=== PATIENT | female | born 1940 | race Caucasian/White ===

== ENCOUNTER → 2016-11-16 | Outpatient (CLI) | payer BC ==
[2015-08-21 11:45] VITALS: BP 120/63
[~2016-11-16] MED LIST: CALC200T19 PO; CHOL100013 PO; GABA-585 PO; GLUC1TAB PO; HYDR12.58 PO; IBUP100O7 PO; MULT-245 PO; OMEG500C PO; OTHER; PANT40TA5 PO; RANI300T PO; SIMV5TAB5 PO
--- NOTE | 2016-11-16 14:33 | KCIC ---
PROCEDURE BMD using DEXA HISTORY Postmenopausal screening for osteoporosis. COMPARISON None available. FINDINGS Bone Density: -BMD: (g/cm2) - AP Spine Total (L1-L4)..........1.145 - Total left Hip.................0.853 T-Score: - AP Spine Total (L1-L4).........0.9 - Total left Hip.................-0.7 Z-Score: - AP Spine Total (L1-L4)..........3.3 - Total left Hip.................1.1 World Health Organization criteria for BMD interpretation classify patients as Normal (T-score at or above -1.0), Osteopenic (T-score between -1.0 and -2.5), or Osteoporotic (T-score at or below -2.5). IMPRESSION 1. AP Spine Total L1-L4---normal. 2. Total left Hip---normal. Electronically signed by: Fei Mejia MD (Nov 16, 2016 14:31:34)
== END | disposition home or self-care (01) ==
LOC: KCIC DEXA 09:45
PROVIDERS: ATTEND Physician Assistant Medical
DX: Z13.820 Encounter for screening for osteoporosis (principal); Z78.0 Asymptomatic menopausal state
CPT/HCPCS: 77080

== ENCOUNTER 2018-05-14 11:01 | Inpatient (IN) | payer BC ==
[~2018-05-14] VITALS: Ht 149.9 cm; Wt 73.7 kg
[~2018-05-14 11:01] MED LIST changes: +IBUP100O25 PO; -IBUP100O7 PO
[2018-05-14 12:36] VITALS: BP 133/60
[2018-05-14] MEDS ORDERED: GABA600T2 PO (12:53)
[2018-05-14] MEDS: IV DEXTROSE 5%-LACT RINGERS 1,000 ML IV SCH ×2 (13:48→21:42)
[2018-05-14] MEDS: PANTOPRAZOLE 40 MG TABLET.DR. PO SCH ×2 (13:48→21:12)
[2018-05-14 14:45] VITALS: BP 117/62
[2018-05-14] MEDS ORDERED: ONDANSETRON PF 4 MG/2 ML VIAL. IV PRN (15:00)
[2018-05-14] MEDS ORDERED: PHENOL ORAL SPRAY 177ML BOTTLE. PO PRN (15:00)
[2018-05-14 19:45] VITALS: BP 147/57
[2018-05-14] MEDS ORDERED: GABAPENTIN 300 MG CAPSULE. PO SCH (21:00)
[2018-05-14 23:00] VITALS: BP 102/54
[2018-05-15 03:35] VITALS: BP 103/52
[2018-05-15] MEDS: IV DEXTROSE 5%-LACT RINGERS 1,000 ML IV SCH (05:15)
[2018-05-15 07:59] VITALS: BP 125/56
--- NOTE | 2018-05-15 08:24 | PDOC1 ---
H & P H&P HPI: Ms. Heredia is a 77-year-old female with past medical history of hypertension, hyperlipidemia, GERD, obesity, who presented from an outside ER for admission due to an episode of syncope. She notes that she has been feeling poorly for the last few days with URI symptoms (nasal congestion, headache, fatige, malaise ). She hasn't been eating or drinking as much lately. She seemed to be feeling better, so went to [employer] yesterday morning, but started feeling poorly and like she was going to pass out. She then vomited and her took her to the ER at [facility] at the [facility]. She was evaluated with reportedly unremarkable findings - ER report and labs are not available for review at this time. She was given IV fluids and admitted for further management. This morning , she is feeling well, steady on her feet and feels ready to go home today. We discussed options for further work up, but without any overt concerning features of her story or labs, we discussed that this could be deferred to a later time if symptoms recurred. ROS: Constitutional: Denies fever, fatigue, chills HEENT: Admits nasal congestion, minimal sore throat Cardio: Denies chest pain, dyspnea with exertion, palpitations, edema Pulmonary: Admit mild dry cough; Denies shortness of breath, wheezing GI: Denies nausea, vomiting, diarrhea, constipation : Denies dysuria, frequency, urgency, incontinence Skin: Denies new lesions Neuro: Denies weakness, paresthesias PMH: As above. Family Hx: Mother had hypertension and mental illness. Father had cancer of unknown type. Social Hx: Former smoker, no significant alcohol use. Surg Hx: Left shoulder surgery, cholecystectomy. Meds: Reviewed and reconciled Allergies: Reviewed PE: Alert, oriented, no acute distress EOMI, sclera non-icteric Neck supple RRR, no murmur CTAB, no wheezes, crackles or rhonchi Soft, NT, ND, normal bowel sounds. No edema, cyanosis. Normal capillary refill. Calm, cooperative, mood/affect within normal limits Assessment/Plan: Vasovagal syncope Hypertension Hyperlipidemia GERD Obesity Patient is feeling well. No further work up is necessary at this time. DC home with return precautions discussed. She will follow up in 1 week or sooner. She will continue all home medications with the exception of HCTZ, which she will hold until seen in clinic. JALIL PEARSON MD May 15, 2018 08:24
[2018-05-15] MEDS: PANTOPRAZOLE 40 MG TABLET.DR. PO SCH (08:47)
[2018-05-15] MEDS ORDERED: hydroCHLOROthiazide 12.5 MG CAPSULE PO SCH (09:00)
[2018-05-15] MEDS ORDERED: IBUPROFEN 600 MG TABLET. PO PRN (09:30)
[2018-05-15 11:40] VITALS: BP 140/64
[2018-05-15] MEDS ORDERED: SIMVASTATIN 40 MG TABLET. PO SCH (21:00)
== END 2018-05-15 15:15 | disposition home or self-care (01) | DRG 312 ==
LOC: 2 NORTH 11:36
PROVIDERS: ADMIT Family Medicine; ATTEND Family Medicine
DX: R55 Syncope and collapse (principal); E66.9 Obesity, unspecified; E78.5 Hyperlipidemia, unspecified; I10 Essential (primary) hypertension; K21.9 Gastro-esophageal reflux disease without esophagitis; Z68.32 Body mass index [BMI] 32.0-32.9, adult; Z82.49 Family history of ischemic heart disease and other diseases of the circulatory system; Z80.9 Family history of malignant neoplasm, unspecified; Z87.891 Personal history of nicotine dependence; Z90.49 Acquired absence of other specified parts of digestive tract
CPT/HCPCS: J2405

== ENCOUNTER → 2018-10-10 | Outpatient (CLI) | payer BC ==
[~2018-10-10] MED LIST changes: +GABA600T7 PO; +SIMV5TAB14 PO; -SIMV5TAB5 PO
--- NOTE | 2018-10-10 14:42 | KCIC ---
EXAM: Chest, 2 views. HISTORY: Viral illness. COMPARISON: None. FINDINGS: 2 views of the chest are obtained. There is no infiltrate, pleural effusion or pneumothorax. There is left basilar atelectasis. The heart is normal in size. There is a large hiatal hernia. IMPRESSION: No acute pulmonary finding. Electronically signed by: Yusra Eckert MD (10/10/2018 2:38 PM) [facility]
== END | disposition home or self-care (01) ==
LOC: KCIC 13:30
PROVIDERS: ATTEND Internal Medicine
DX: J98.11 Atelectasis (principal); K44.9 Diaphragmatic hernia without obstruction or gangrene
CPT/HCPCS: 71046

== ENCOUNTER → 2019-08-06 | Outpatient (CLI) | payer BC ==
[~2019-08-06] MED LIST changes: -PANT40TA5 PO; +PANT40TA77 PO
--- NOTE | 2019-08-07 11:06 | KCIC ---
PA and lateral chest x-ray compared to similar exam dated October 10, 2018 for fever and chills. FINDINGS: Lungs are clear. Heart size within normal limits. There is a moderate size hiatal hernia. This is grossly stable. There has been a prior cholecystectomy. Degenerative changes are seen throughout the spine. IMPRESSION: 1. No acute cardiopulmonary abnormality. Electronically signed by: Mihir Marcano MD (08/07/2019 11:03 AM) [facility]
== END | disposition home or self-care (01) ==
LOC: KCIC 11:28
PROVIDERS: ATTEND Family Medicine
DX: K44.9 Diaphragmatic hernia without obstruction or gangrene (principal); M47.814 Spondylosis without myelopathy or radiculopathy, thoracic region; Z90.49 Acquired absence of other specified parts of digestive tract
CPT/HCPCS: 71046

== ENCOUNTER → 2019-12-19 | Outpatient (CLI) | payer BC, MEDICARE ==
[~2019-12-19] MED LIST changes: +CRAN250C PO; +D-MA300P PO; +IOHEXOL 180 MG/ML 10 ML VIAL. ONE; +LACT1CAP6 PO; +MELO7.5T29 PO; +PRAM0.255 PO; +TRAM50TA PO; +methylPREDNISolone ACETATE 40 MG/ML VIAL. ONE; +methylPREDNISolone ACETATE 80 MG/ML VIAL. ONE
--- NOTE | 2019-12-19 15:15 | PAIN ---
DATE OF SERVICE: 12/19/2019 INITIAL CONSULTATION FOR PAIN CLINIC CHIEF COMPLAINT: Low back and right lower extremity pain. HISTORY OF PRESENT ILLNESS: This is a 79-year-old female who presents with history of persistent history of pain for about 2 months on and off for many years, but much worse over the past 2 months of low back pain radiating to posterior gluteus across the low back into the posterior calf, posterior thigh, lateral thigh, medial thigh, into the foot, mostly in the posterior aspect of the calf itself. The patient reports it is worse with walking, standing, changing positions, better with sitting or lying down, does not awaken her from sleep at night generally, but can some nights. The patient reports it does not affect her bowel or bladder control, but does affect her ability to walk significantly. She has significant fatigue in the right lower extremity compared to the left. The patient reports it has been progressively getting worse over the past 2 months or so without any specific injury or action that she is aware of. She has tried chiropractic treatment as well as stretching and strengthening exercises at home. The patient reports no significant decrease in pain, long-term. The patient did have MRI scan of the lumbar spine, which we reviewed with her and her today showing L4-L5 anterolisthesis without spondylosis and subsequent central canal narrowing with AP diameter reduced 0.6 cm, L5-S1 shows annular disk bulge and focal small right lateral recess disk protrusion approaching the right S1 nerve root. The patient rates her disability rating from 0-10, 10 being the worst, is an 8 with family and home responsibilities, 5 with recreation and social activity, occupation, 4 with sexual behavior, 5 with self-care and 0 with life support activities. The patient reports no loss of motor function, but significant fatigability in the right lower extremity, described as constant with walking, standing, better with sitting or lying down, stabbing, throbbing, shooting across the low back and shooting into the right leg, radiating into the leg as well. The patient reports she has had difficulty with significant fatigue with walking more than about 5-10 minutes with the right leg and she is dragging her toe and stubbing her toe quite a bit when the pain is at its worst. PAST MEDICAL HISTORY: Significant for arthritis, wears glasses. PREVIOUS SURGERY: Include bilateral shoulder surgeries and a cholecystectomy, otherwise she has been in fairly good health. CURRENT MEDICATIONS: Include gabapentin, Mirapex, probiotic, tramadol, meloxicam, cranberry extract, D-mannose, Calcitrate, simvastatin, pantoprazole, vitamin D, multivitamins, glucosamine and fish oil. ALLERGIES: THE PATIENT IS ALLERGIC TO PENICILLIN. FAMILY HISTORY: Significant for no major medical problems or conditions that she lists. SOCIAL HISTORY: The patient does not drink alcohol, does not smoke. Denies any illegal, illicit or recreational drugs. She is , lives with her spouse, lives locally in [place], [place]. Reports she is currently retired. REVIEW OF SYSTEMS: The patient's review of systems is positive for those items mentioned in history of present illness. All systems reviewed and otherwise negative. It is complete, full and well documented on the patient's chart. PHYSICAL EXAMINATION: VITAL SIGNS: The patient's blood pressure 139/76, pulse 81, respirations 18, temperature is 97.8 degrees Fahrenheit, height is 4 feet 11 inches, weight is 166 pounds. GENERAL: The patient is awake, alert, oriented, appropriate, very pleasant demeanor. HEENT: Exam shows normocephalic, atraumatic. Extraocular movements are intact and symmetrical. Oral cavity shows mucous membranes moist and pink. Dentition is intact. NECK: Shows anterior throat supple without palpable lymphadenopathy noted. Swallow reflex symmetrical. CHEST: Shows normal on inspection. Breath sounds are clear to auscultation bilaterally. HEART: Shows S1, S2 clear. No murmurs auscultated. ABDOMEN: Soft, nontender, nondistended. No palpable organomegaly is noted. No rebound or guarding demonstrated. BACK: Shows spine grossly in the midline. Normal appearing cervical lordotic curvature, thoracic kyphotic curvature and lumbar lordotic curvature. Lumbar paraspinous muscle shows symmetrical on inspection, with palpation shows some [id number] tenderness in the middle and lower distribution of paraspinous muscles diffusely, but without atrophy, hypertrophy, no asymmetry, no trigger points. No tenderness over the spinous processes, sacrum or sacroiliac regions. The patient has good rotational motion of lumbar spine, both laterally greater than 10 degrees right and left as well as extension greater than 10 degrees, forward flexion 45 degrees without significant pain reported. EXTREMITIES: Lower extremities show deep tendon reflexes at 1+ in the patellar and tendo calcaneus tendons. Motor exam is strong with approximately 4 on a scale of 5 with right dorsiflexion, extension, quadriceps and hamstring flexion and 5/5 on the left. Peripheral pulses are 1+ posterior tibia. No peripheral edema is noted. Lower extremities are warm and dry to touch, equal in color and appearance. Straight leg raise noted to be mildly positive on the right at about 35-40 degrees, decreased with knee flexion, left side is negative. Gaenslen's and Eleazar's maneuvers are negative bilaterally. The patient is able to stand, has no difficulty standing on her toes, walks with a slight favoring gait, does appear to favor the right lower extremity mildly, but not using any assistive device such as canes or walkers to ambulate for short distance in the office today. SKIN: Shows warm and dry, good turgor. No edema. No sores, rashes or bruising throughout. IMPRESSION: 1. This is a 79-year-old female with long history of low back and right lower extremity pain, worse over the past 2 months or so in a radicular fashion. 2. MRI scan of lumbar spine as noted. 3. History of arthritis. PLAN: Options were discussed with the patient including conservative medical managements, physical therapies and interventional techniques and she would like to pursue interventional techniques. We discussed a lumbar epidural steroid injection using description as well as anatomical models to describe the procedure. Risks were then discussed including, but not limited to bleeding, infection, possibility of epidural hematoma, subsequent neurological compromise, dural puncture, headaches, spinal cord and/or nerve damage, side effects of steroid medication and poor results regarding pain control. The patient understands and wished to proceed. The patient will return to clinic in approximately 2 weeks for followup. She was counseled on return appointment, activity level and side effects to be aware of. DIAGNOSIS: Lumbar radiculopathy with lumbar degenerative disk disease. PROCEDURE: Lumbar epidural steroid injection, translaminar approach L5-S1 level using C-arm fluoroscopic guidance under sterile prep and drape using local anesthetic. MEDICATION INJECTED: A total of 120 mg Depo-Medrol plus 10 mL of preservative-free normal saline and 2 mL of contrast. CONDITION AT DISCHARGE: Stable. The patient tolerated procedure well, had no complications. JUAQUIN NEUMANN MD DR: SHAYNA/[place] JOB#: [id number] / [id number] DARLIN Acosta DO
== END ==
LOC: PNCL 12:52
PROVIDERS: ATTEND Anesthesiology
DX: M51.16 Intervertebral disc disorders with radiculopathy, lumbar region (principal); Z87.39 Personal history of other diseases of the musculoskeletal system and connective tissue; Z90.49 Acquired absence of other specified parts of digestive tract; Z88.0 Allergy status to penicillin
CPT/HCPCS: 62323; J1030; J1040; Q9965

== ENCOUNTER → 2020-01-02 | Outpatient (CLI) | payer BC ==
[~2020-01-02] MED LIST changes: -IOHEXOL 180 MG/ML 10 ML VIAL. ONE; -methylPREDNISolone ACETATE 40 MG/ML VIAL. ONE; -methylPREDNISolone ACETATE 80 MG/ML VIAL. ONE
--- NOTE | 2020-01-02 12:27 | PAIN ---
DATE OF SERVICE: 01/02/2020 PROGRESS NOTE FOR PAIN CLINIC DIAGNOSES: Lumbar radiculopathy with lumbar degenerative disk disease. HISTORY OF PRESENT ILLNESS: The patient is a 79-year-old female who returns for followup status post lumbar epidural steroid injection x 1. The patient reports about 60% improvement in pain in low back and right lower extremity. The patient reports she is doing much better, increasing her activity, greater walking distances, doing household activities with greater activities, sleeping better at night, it does not affect her sleep. The patient reports it is 8-9 on a scale of 10 at its worst over the past week, 6 on average and 4 at its least and is a 4 today. The patient reports it is much better with sitting or lying down. The patient describes the pain is in the low back, right lower extremity, posterior gluteus, posterolateral thigh, posterior calf, but mostly in the posterior thigh itself and the bladder at this point. The patient reports it is a tingling, burning pain, radiating on and off in intensity, again worse with walking and standing. The patient reports no new motor or sensory deficits, no new bowel or bladder incontinence or other complaints. PHYSICAL EXAMINATION: VITAL SIGNS: The patient's blood pressure is 143/78, pulse 73, respirations 18, temperature 98.2 degrees Fahrenheit, height is 4 feet 11 inches, weight is 162 pounds. GENERAL: The patient is awake, alert, oriented, appropriate, very pleasant demeanor. HEENT: Exam shows normocephalic, atraumatic. Extraocular movements are intact and symmetrical. Oral cavity shows mucous membranes moist and pink. Dentition is intact. NECK: Shows anterior throat supple without palpable lymphadenopathy noted. Swallow reflex symmetrical. CHEST: Shows normal on inspection. Breath sounds are clear bilaterally. HEART: Shows S1, S2 clear. ABDOMEN: Obese, soft, nontender, nondistended. BACK: Shows spine grossly in the midline. Normal appearing thoracic kyphosis and some minor flattening of lumbar lordotic curvature. Lumbar paraspinous muscle shows symmetrical on inspection, on palpation shows some moderate tenderness diffusely bilaterally, but only diffusely without significant radiation. EXTREMITIES: The patient's lower extremities show deep tendon reflexes at 1+ in the patellar and tendo calcaneus tendons are equal. Motor exam is approximately 4 on a scale of 5 on the right with dorsiflexion and extension, 5/5 on the left. Peripheral pulses are 1+. No peripheral edema is noted. PLAN: Options were discussed with the patient. The patient's old chart was reviewed as her current medication regimen updated. Current review of systems updated today as well. We will proceed with holding any further injections at this time. The patient is doing quite a bit better. I would like to give this more time. We discussed the option of a Medrol Dosepak as she does still have some radicular pain in the right leg. She would like to try this first prior to committing to a second injection. The patient was given instruction as well as side effects to be aware of with the medication. Follow up after Medrol Dosepak is completed if not significantly improved. JUAQUIN NEUMANN MD DR: SHAYNA/[place] JOB#: [id number] / [id number]
== END | disposition home or self-care (01) ==
LOC: PNCL 11:24
PROVIDERS: ATTEND Anesthesiology
DX: M51.16 Intervertebral disc disorders with radiculopathy, lumbar region (principal)
CPT/HCPCS: G0463

== ENCOUNTER → 2020-01-31 | Day surgery (SDC) | payer BC ==
[~2020-01-31] MED LIST changes: +HYDR-3164 PO
[2020-01-31 16:00] LABS: BASO # 0.1 x10^3/uL (0.0-0.2); BASO % 1 % (0-3); EOS # 0.2 x10^3/uL (0.0-0.7); EOS % 5 % (0-3); HEMATOCRIT 37.8 % (36.0-47.0); HEMOGLOBIN 12.9 g/dL (12.0-15.5); LYMPH # 1.9 x10^3/uL (1.0-4.8); LYMPH % 41 % (24-48); MEAN CORPUSCULAR HEMOGLOBIN 33 pg (25-35); MEAN CORPUSCULAR HGB CONC 34 g/dL (31-37); MEAN CORPUSCULAR VOLUME 97 fL (79-100); MONO # 0.6 x10^3/uL (0.0-1.1); MONO % 12 % (0-9); NEUT # 1.9 x10^3/uL (1.8-7.7); NEUT % 41 % (31-73); PLATELET COUNT 211 x10^3/uL (140-400); RED BLOOD COUNT 3.91 x10^6/uL (3.50-5.40); RED CELL DISTRIBUTION WIDTH 13.8 % (11.5-14.5); WHITE BLOOD COUNT 4.6 x10^3/uL (4.0-11.0)
--- NOTE | 2020-01-31 16:00 | EKG ---
[facility] [address] [place] [address] Test Date: 2020-01-31 Test Time: 15:59:15 Pat Name: SPENCER ZEE Department: Room: Gender: F Research Lab Assistant: PAOLO : 1940 Requested By: EVER PALAFOX Order Number: [id number] Reading MD: Jeffery Mcdowell MD Measurements Intervals [place] Rate: 81 P: 28 GA: 150 QRS: 17 QRSD: 76 T: 25 QT: 326 QTc: 379 Interpretive Statements SINUS RHYTHM Electronically Signed On 02-01-2020 13:25:49 CDT by Jeffery Mcdowell MD
[2020-01-31 16:02] LABS: BILIRUBIN,URINE NEGATIVE (NEG); CLARITY,URINE CLEAR; COLOR,URINE YELLOW; NITRITE,URINE NEGATIVE (NEG); PH,URINE 5.5 (<5.0-8.0); PROTEIN,URINE NEGATIVE (NEG-TRACE); UROBILINOGEN,URINE 0.2 mg/dL (0.2 mg/dL)
[2020-01-31 16:05] LABS: BACTERIA,URINE 0 /HPF (0-FEW); RBC,URINE 0 /HPF (0-2); SQUAMOUS EPITHELIAL CELL,UR FEW /LPF; WBC,URINE 0 /HPF (0-4)
[2020-01-31 16:15] LABS: ALBUMIN 3.6 g/dL (3.4-5.0); CALCIUM 8.5 mg/dL (8.5-10.1); GFR 53.5; POTASSIUM 3.7 mmol/L (3.5-5.1); TOTAL BILIRUBIN 0.3 mg/dL (0.2-1.0); TOTAL PROTEIN 7.1 g/dL (6.4-8.2)
--- NOTE | 2020-01-31 16:56 | RAD ---
CHEST PA LATERAL Technique: PA and lateral views of the chest were obtained. Clinical History: Reason: PRE SURGICAL EVAL Hysterectomy / Spl. Instructions: / History: Comparison: August 06, 2019. Findings: The heart and pulmonary vasculature appear within normal limits. The lungs are clear. The pleural margins are clear. The large hiatal hernia is again seen. Impression: Large hiatal hernia. Stable appearance of the chest. Electronically signed by: Chirag Lynne III, MD (01/31/2020 4:53 PM) [id number]
== END | disposition home or self-care (01) ==
LOC: SURGPAT 15:24
PROVIDERS: ATTEND Obstetrics & Gynecology
DX: Z11.59 Encounter for screening for other viral diseases (principal); Z01.810 Encounter for preprocedural cardiovascular examination; K44.9 Diaphragmatic hernia without obstruction or gangrene; Z88.0 Allergy status to penicillin
CPT/HCPCS: 36415; 71046; 80053; 81001; 85025; 93005; U0003-CS

== ENCOUNTER 2020-02-06 08:35 | Observation (INO) | payer BC ==
[~2020-02-06] VITALS: Ht 149.9 cm; Wt 74.4 kg
[~2020-02-06 08:35] MED LIST changes: +CLINDAMYCIN 600MG PREMIX 50 ML IV PRN; +CLINDAMYCIN 900MG PREMIX 50 ML IV ONE; -HYDR-3164 PO; +HYDROmorphone 2 MG/ML VIAL IVP PRN; +IV RINGERS,LACTATED 1000ML 1,000 ML IV SCH; +LIDOCAINE 1% PF 2 ML VIAL. ID PRN; +MORPHINE SULFATE 2 MG/ML VIAL. IVP PRN; +ONDANSETRON PF 4 MG/2 ML VIAL. IVP PRN; +PROCHLORPERAZINE 10 MG/2 ML VIAL. IVP PRN; +fentaNYL PF VIAL 100 MCG/2 ML VIAL IVP PRN
[2020-02-06] MEDS ORDERED: ONDANSETRON PF 4 MG/2 ML VIAL. ONE (08:42)
[2020-02-06] MEDS ORDERED: fentaNYL PF VIAL 100 MCG/2 ML VIAL ONE ×3 (08:42→13:38)
[2020-02-06] MEDS ORDERED: LIDOCAINE 2% PF 5 ML VIAL. ONE (08:42)
[2020-02-06] MEDS ORDERED: DEXAMETHASONE SOD PHOS 4 MG/ML VIAL ONE (08:42)
[2020-02-06] MEDS ORDERED: ROCURONIUM 50 MG/5 ML VIAL. ONE (08:42)
[2020-02-06] MEDS ORDERED: PROPOFOL 10 MG/ML (20ML) VIAL. IV ONE (08:42)
[2020-02-06] MEDS ORDERED: ESTROGENS, CONJ VAGINAL CREAM 30GM TUBE. ONE (10:12)
[2020-02-06] MEDS ORDERED: BUPIVACAINE-EPI 0.25%-1:200000 MPF 30 ML VIAL. ONE (10:13)
[2020-02-06] MEDS ORDERED: INDIGOTINDISULFONATE SODIUM 40 MG/5 ML AMPUL. ONE (10:13)
[2020-02-06] MEDS ORDERED: SILVER NITRATE STICK TP ONE (10:54)
[2020-02-06] MEDS ORDERED: SEVOFLURANE 61 TO 120 MINUTES. IH ONE (11:59)
[2020-02-06] MEDS ORDERED: NEOSTIGMINE METHYLSULFATE 5 MG/5 ML SYRINGE. ONE (12:27)
[2020-02-06] MEDS ORDERED: GLYCOPYRROLATE 1 MG/5 ML VIAL. ONE (12:27)
[2020-02-06] MEDS ORDERED: SEVOFLURANE > 120 MINUTES. IH ONE (12:52)
--- NOTE | 2020-02-06 13:16 | PDOC ---
BRIEF OPERATIVE NOTE Date: Feb 06, 2020 Pre-Op Diagnosis pelvic pain, IUD complication Post-Op Diagnosis same plus severe atrophy, short vagina Procedure Performed LAVH/BSO Surgeon Dr. Sandra Edge [employer] AMOS Rogers Anesthesiologist Dr. Perez Anesthesia Type: General Blood Loss 75cc IV Fluid 800cc Urine Output 250cc clear via cornelius Specimens Obtained cervix, uterus, bilateral tubes and ovaries with IUD in uterus Findings atrophic vagina, shortened almost flat cervix with vagina, small uterus with normal bilateral tubes and ovaries Complications umbilical trochar in small bowel mesentary not near small bowel, so initially under bowel when entered abdomen easily out and grossly normal abdominal cavity able to look at bowel and flip it up and look at it to make sure nothing behind it and ok plus could see under it with visaport looked at it again at the end, no bleeding or anything unusual Operative Note [id number] SANDRA EDGE MD Feb 06, 2020 13:16
[2020-02-06] MEDS ORDERED: diphenhydrAMINE HCL 25 MG CAPSULE PO PRN (13:30)
[2020-02-06] MEDS ORDERED: ZOLPIDEM 5 MG TABLET. PO PRN (13:30)
[2020-02-06] MEDS ORDERED: 0.9 % SODIUM CHLORIDE 10 ML DISP.SYRIN. IV PRN (13:30)
[2020-02-06] MEDS ORDERED: MORPHINE SULFATE 2 MG/ML VIAL. IV PRN (13:30)
[2020-02-06] MEDS ORDERED: CALCIUM CARBONATE 500 MG TAB.CHEW PO PRN (13:30)
[2020-02-06] MEDS ORDERED: MAG HYDROX/ALUMINUM HYD/SIMETH 30 ML ORAL.SUSP PO PRN (13:30)
[2020-02-06] MEDS ORDERED: diphenhydrAMINE 50 MG/ML VIAL IV PRN (13:30)
[2020-02-06] MEDS ORDERED: NALOXONE 0.4 MG/ML VIAL. IV PRN (13:30)
[2020-02-06] MEDS ORDERED: SIMETHICONE 80 MG TAB.CHEW PO PRN (13:30)
[2020-02-06] MEDS ORDERED: LACTULOSE 20 GM/30 ML SOLUTION. PO PRN (13:30)
[2020-02-06] MEDS ORDERED: ONDANSETRON PF 4 MG/2 ML VIAL. IV PRN (13:30)
[2020-02-06] MEDS ORDERED: oxyCODONE/APAP 5/325 1 TAB TABLET PO PRN (13:30)
[2020-02-06] MEDS ORDERED: MAGNESIUM HYDROXIDE 2,400 MG/30 ML ORAL.SUSP. PO PRN (13:30)
--- NOTE | 2020-02-06 14:04 | OP ---
DATE OF SURGERY: 02/06/2020 HISTORY: This is a 79-year-old female, who presented to me with pelvic pain, having had a workup with a retained IUD since 1964. With her atrophy and a 5-cm uterus, they felt that there could be some pain with the uterus shrinking over the retained IUD and that it might be growing into the wall of the uterus causing some of her pain. So, she was desiring it out. She wanted definitive therapy and desired to that to have a hysterectomy to have it removed. PREOPERATIVE DIAGNOSES: Pelvic pain, intrauterine device complication. POSTOPERATIVE DIAGNOSES: Pelvic pain, intrauterine device complication, plus severe vaginal atrophy and a short vagina. PROCEDURE: Laparoscopic-assisted vaginal hysterectomy, bilateral salpingo-oophorectomy. SURGEON: Ever Edge MD APPLIED RESEARCH DIRECTOR: AMOS Das, and AMOS Muller, interchanged out over the lunch hour. ANESTHESIOLOGIST: Azam Perez MD ANESTHESIA: General. ESTIMATED BLOOD LOSS: 75 mL. URINE OUTPUT: 250 mL, clear via Hdz catheter. INTRAVENOUS FLUIDS: 800 mL of crystalloids. SPECIMEN REMOVED: Cervix, uterus, bilateral tubes and ovaries with the IUD in the uterus. Once I started operating and I recreated her flat flush cervix with the vagina out and then started operating vaginally, I could find the IUD strings. These were not even initially visible in the office or today upon initial exam. Complications upon initial entry under the umbilical port. The umbilical port did touch the small bowel mesentery. I did slip under it to make sure that I can initially see on the Visiport that I was underneath the bowel I pulled back. The bowel was grossly normal. It was in the middle, nowhere near a loop of small bowel, but I did put the right lower quadrant port in immediately and moved that around with a probe and get under that, slip that loop up and make sure there was nothing under it and there was not, and it was not bleeding. So, it was examined very well to make sure that there was no trauma at all and it was right in the middle of the mesentery, nowhere near the actual small bowel. Once this was done, the left lower quadrant port was then placed into the right lower quadrant, was placed in an area clear of any adhesions underneath. It was transilluminating the abdominal wall, making sure there was no vasculature, making a small incision and placing the trocar and insufflating with 4-5 mL of air in the cuff and then going in and examining that. Once that was done, then we put the left one, left lower quadrant port in easily as well same way and then moved the camera to a lateral port to look at the umbilical port. It was clear, inflated that one as well. I then placed her in Trendelenburg and began operating. She had a very small atrophic uterus, small ovaries as well. The left one was very tiny, almost a streak ovary under the tube, it was elevated, she had some scarring underneath there, maybe some old endometriosis, but the ureter was low in the pelvis, staying high right under the ovary, crossing the IP ligament with the LigaSure cauterizing and cutting, staying under that tube, crossing the left round ligament as well. This was done on the right side as well, elevating the right tube and ovary. The ureter was clearly defined over here. I could find a normal appendix that looked good. A little bit of scarring of the bowel to the right side, but other than that, it looked very normal, healthy appendix. I could find the ureter coursing low in the pelvis very easily on the right side, without scarring, staying high on the ovary, crossing the IP ligament again, cauterizing and cutting and then staying under that tube and then crossing the right round ligament as well. Pushing the uterus cephalad, I was able to create the bladder flap and used the monopolar hook to cut across and create and peel the bladder flap down anteriorly. She did have some fattier tissue underneath that bladder flap, which was just weird and different, but otherwise it did come off the cervix and uterus fairly easily. The posterior cul-de-sac was free and after taking down the bladder, I did get the uterines on both sides and then hugging the uterus staying vertical through the cardinal and broad ligaments, cauterizing and cutting, staying inside that uterine pedicle down to the level of the uterosacral on the left and then going down and staying inside each pedicle as well on the right once the uterine vessels were obtained, hugging the cervix and going down, especially posteriorly. The uterus was blanched, again the posterior was free, it was all mobile. So, at this point, all instruments were removed from the abdomen and attention was turned vaginally. Upon initial start of the case, a timeout was performed once everyone agreed on the patient's site, procedure, and antibiotics. A weighted speculum was placed in the patient's vagina. A single-tooth tenaculum was used to grasp the anterior lip of the cervix. It was flushed and flat with the vagina, had to be kind of pulled out and recreated. I did use 10 mL of 0.25% Marcaine to circumferentially inject the cervix for both hemodissection and hemostatic purposes later. I placed in the Valtchev. Upon pulling out the cervix and creating and finding that endocervical thing, I was then able to locate the IUD strings finally, but I placed in the Valtchev uterine manipulator, it was locked on the single-tooth tenaculum and the weighted speculum was removed. At that point, top gloves were discarded and changed. Attention was turned to the abdomen where a small infraumbilical skin incision was made with the scalpel. A curved Doreen was used to dissect through the subcuticular layer at the fascia and the 5-mm Visiport was used to enter the abdominal cavity. At first, it felt like we were not in and when I pushed a little further, it looked like we were under bowel and then I pulled back and the bowel was normal, so when we got in, you could see. It is that is when there was a small opening in that mesentery of the small bowel that we examined. Please see above. So, all the above happened and then I went vaginally. So, now we are back vaginally where the single tooth and Valtchev were removed. A weighted speculum was placed in the patient's vagina. Thyroid Kamaljit clamps were placed on the anterior and posterior lips of the cervix respectively. A scalpel was used to make a circumferential incision in the cervix. The posterior cul-de-sac was sharply entered with the Rosenthal scissors. A #0 Vicryl stitch was used to secure the posterior peritoneum to the vaginal cuff, was tagged with a curved Doreen clamp. The needle was cut and passed off. The short weighted speculum was removed and the long weighted Mane speculum was placed in the posterior cul-de-sac. The bladder flap was created sharply and bluntly just using the Yankauer suction tip bluntly to just gently pushup using the scalpel to peel the bladder off the cervix. I did go very low on the cervix as I wanted to air on the side as she had a very short vagina, atrophic flush and flat. So, I barely went right inside. She was so atrophic, she just wanted to peel from everywhere we touched, cut. The tenaculums wanted to pull up that I was on the very end, but I was able to get the cervix and I was able to gently once I started sharply to peel it off to take an open Ray-Esther and gently push it up and off the cervix. At this point, it was opened enough to put curved Angelina's x 2 on the patient's left uterosacral ligament where they were doubly clamped with curved Angelina's, cut with curved Rosenthal scissors and suture ligated x 2 with 0 Vicryl. The second one was taken through the vaginal cuff securing uterosacral ligament to the vaginal cuff. Once this was done, it was tagged with a straight Doreen clamp and the needle was cut and passed off. The remaining pedicle on that side could be clearly delineated as we were in the anterior cul-de-sac on that side, I could take the right angle clamp around that and the vaginal LigaSure was used to cauterize and cut the remaining pedicle on the patient's left side. The left side was completely free at this point. At this point, I worked on the right side, making sure that the bladder was up on that side as well, that I could see all the way around the pedicle. I did the curved Angelina's x 2 on the uterosacrals first, cutting and clamping, double clamping with curved Angelina's, cutting with the curved Rosenthal scissors and suture ligating x 2 with #0 Vicryl, again taking the second one through the vaginal cuff, securing uterosacral ligament to the vaginal cuff and then tagging it with a straight Doreen clamp and cutting and passing the needle off. The remaining pedicle on this side again could be delineated with the right angle clamp and then using the vaginal LigaSure to cauterize and cut the remaining pedicle. At this point, the cervix, uterus, bilateral tubes and ovaries were delivered in total and passed off for permanent pathology. The anterior bladder peritoneum could be found with the long Allis and grasped. I used a sponge stick to examine the pedicles, which appeared to be hemostatic. I took out the long weighted speculum from the posterior cul-de-sac and replaced the short weighted vaginal speculum. Again, all the pedicles remained hemostatic. There was some just slight posterior cuff bleeding that could be seen, that was it. So, 2-0 Vicryl was taken through the anterior bladder peritoneum, left uterosacral ligament, posterior peritoneum and right uterosacral ligament, thus closing the peritoneum in a pursestring-like fashion. Once this was done, the right and left uterosacral tags were clipped and a full length 2-0 Vicryl was used to close the cuff in an [id number] running locked fashion and tied to that posterior cuff tag. A few interrupted sutures were placed for hemostasis with excellent results. She was just so atrophic that I went ahead and got some Premarin vaginal cream and placed it on the sutures and placed just a very small amount of packing in just to hold it in place. Once this was done, all instruments had been counted x 2 by OR personnel and were good. All gloves were discarded and changed and attention was turned back above for a second look. The patient was placed back in Trendelenburg position. Gas was reinsufflated. The right and left pericolic gutters were clear. The bowel was grossly normal again. It was reexamined, especially reversing her looking at the loop of mesentery again. The liver edge was normal. Again, the appendix was grossly normal with just a small adhesion, but grossly normal. The cuff was irrigated. Clear fluid did return. I placed Tisseel over the cuff with excellent results. The right and left lower quadrant ports, 4-5 mL of air was taken out of the trocar. These were removed under direct visualization and were hemostatic. From the umbilical port, 4-5 mL of air from the trocar and gas was released from this port site. Once the gas was released from this, it was removed as well. All three port sites were closed with 4-0 nylon at the skin and injected with 10 mL of local. The patient is being awakened from anesthesia at this point. EVER EDGE MD DR: CHANG/[place] JOB#: [id number] / [id number]
[2020-02-06 14:30] VITALS: BP 118/77
[2020-02-06 14:50] VITALS: BP 120/71
[2020-02-06] MEDS: GABAPENTIN 300 MG CAPSULE. PO SCH ×2 (15:03→21:23)
[2020-02-06] MEDS: HYDROcodone/APAP 5/325MG 1 TAB TABLET PO PRN ×3 (15:03→23:54)
[2020-02-06 15:10] VITALS: BP 133/64
[2020-02-06 16:20] VITALS: BP 138/63
[2020-02-06 16:30] LABS: HEMATOCRIT 39.5 % (36.0-47.0); HEMOGLOBIN 13.2 g/dL (12.0-15.5); RED BLOOD COUNT 4.04 x10^6/uL (3.50-5.40); RED CELL DISTRIBUTION WIDTH 13.6 % (11.5-14.5); WHITE BLOOD COUNT 10.5 x10^3/uL (4.0-11.0)
[2020-02-06 18:42] VITALS: BP 137/67
[2020-02-06] MEDS ORDERED: PANTOPRAZOLE 40 MG TABLET.DR. PO SCH (21:00)
[2020-02-06] MEDS ORDERED: SIMVASTATIN 40 MG TABLET. PO SCH (21:00)
--- NOTE | 2020-02-06 22:07 | NUR ---
Administered Mirapex at 2100 instead of 0900 at patients request. Patient stated she takes in th evening for restless legs.
[2020-02-07 00:01] VITALS: BP 97/52
[2020-02-07] MEDS: HYDROcodone/APAP 5/325MG 1 TAB TABLET PO PRN (04:33)
[2020-02-07 04:55] VITALS: BP 104/46
[2020-02-07 06:01] LABS: CALCIUM 8.4 mg/dL (8.5-10.1); CREATININE 1.1 mg/dL (0.6-1.0); GFR 47.9; POTASSIUM 4.1 mmol/L (3.5-5.1)
[2020-02-07] MEDS ORDERED: PRAMIPEXOLE 0.25 MG TABLET. PO SCH (09:00)
--- NOTE | 2020-02-07 09:12 | PDOC ---
SURGICAL PROGRESS NOTE Subjective Doing well without problems, ambulating well, voiding without catheter and tolerating regular diet. Wants to go home Vital Signs Vital Signs Date Time Temp Pulse Resp B/P (MAP) Pulse Ox O2 Delivery O2 Flow Rate FiO2 02/07/20 04:55 98.3 75 20 104/46 (65) 91 Room Air 98.3 02/06/20 15:10 2.0 I&O Intake and Output 02/07/20 07:00 Intake Total 2200 ml Output Total 1875 ml Balance 325 ml Intake Oral 1250 ml IV Total 950 ml Output Urine Total 1800 ml Estimated Blood Loss 75 ml # Voids 2 PATIENT HAS A GARCIA: No General: Alert, Oriented X3, Cooperative, No acute distress HEENT: Atraumatic Heart: Regular rate Abdomen: Soft, No tenderness, Other (all port sites c/d/i) Extremities: No clubbing, No cyanosis, No edema Skin: No rashes, No breakdown Neuro: Normal gait, Normal speech Psych/Mental Status: Mental status NL, Mood NL Labs Laboratory Tests Test 02/06/20 16:08 02/07/20 05:12 White Blood Count 10.5 x10^3/uL (4.0-11.0) Red Blood Count 4.04 x10^6/uL (3.50-5.40) Hemoglobin 13.2 g/dL (12.0-15.5) Hematocrit 39.5 % (36.0-47.0) 33.6 % (36.0-47.0) Mean Corpuscular Volume 98 fL (79-100) Mean Corpuscular Hemoglobin 33 pg (25-35) Mean Corpuscular Hemoglobin Concent 34 g/dL (31-37) Red Cell Distribution Width 13.6 % (11.5-14.5) Platelet Count 192 x10^3/uL (140-400) Sodium Level 138 mmol/L (136-145) Potassium Level 4.1 mmol/L (3.5-5.1) Chloride Level 102 mmol/L (98-107) Carbon Dioxide Level 25 mmol/L (21-32) Anion Gap 11 (6-14) Blood Urea Nitrogen 9 mg/dL (7-20) Creatinine 1.1 mg/dL (0.6-1.0) Estimated GFR (Cockcroft-Gault) 47.9 Glucose Level 118 mg/dL (70-99) Calcium Level 8.4 mg/dL (8.5-10.1) Laboratory Tests Test 02/06/20 16:08 02/07/20 05:12 White Blood Count 10.5 x10^3/uL (4.0-11.0) Red Blood Count 4.04 x10^6/uL (3.50-5.40) Hemoglobin 13.2 g/dL (12.0-15.5) Hematocrit 39.5 % (36.0-47.0) 33.6 % (36.0-47.0) Mean Corpuscular Volume 98 fL (79-100) Mean Corpuscular Hemoglobin 33 pg (25-35) Mean Corpuscular Hemoglobin Concent 34 g/dL (31-37) Red Cell Distribution Width 13.6 % (11.5-14.5) Platelet Count 192 x10^3/uL (140-400) Sodium Level 138 mmol/L (136-145) Potassium Level 4.1 mmol/L (3.5-5.1) Chloride Level 102 mmol/L (98-107) Carbon Dioxide Level 25 mmol/L (21-32) Anion Gap 11 (6-14) Blood Urea Nitrogen 9 mg/dL (7-20) Creatinine 1.1 mg/dL (0.6-1.0) Estimated GFR (Cockcroft-Gault) 47.9 Glucose Level 118 mg/dL (70-99) Calcium Level 8.4 mg/dL (8.5-10.1) I have reviewed the following labs, vitals, nursing GI: Constipation Heme/Onc: No pertinent hx Psych: No pertinent hx Assessment/Plan POD#1 s/p LAVH/BSO and removal of tick off right upper leg Routine PO care NPV x 6 weeks light/limited activity x 2 weeks [place] written OK for OTC ibuprofen as needed also keep scheduled follow up call or return sooner for any questions or concerns not limited to but including pain unrelieved with pain meds, T>100.4, increased or unexplained vaginal bleeding, n/v or anything else d/c to home Justicifation of Admission Dx: Justifications for Admission: Justification of Admission Dx: Yes EVER PALAFOX MD Feb 07, 2020 09:12
--- NOTE | 2020-02-07 09:15 | PDOC3 ---
Discharge Summary Visit Information Date of Admission: Feb 06, 2020 Date of Discharge: Feb 07, 2020 Final Diagnosis pelvic pain with IUD complicaiton Brief Hospital Course Allergies Allergies Coded Allergies Type Severity Reaction Last Updated Verified Penicillins Allergy Intermediate Rash 02/06/20 Yes Sulfa (Sulfonamide Antibiotics) Allergy Intermediate Rash 02/06/20 Yes Vital Signs Vital Signs Date Time Temp Pulse Resp B/P (MAP) Pulse Ox O2 Delivery O2 Flow Rate FiO2 02/07/20 04:55 98.3 75 20 104/46 (65) 91 Room Air 98.3 02/06/20 15:10 2.0 Lab Results Laboratory Tests Test 02/06/20 16:08 02/07/20 05:12 White Blood Count 10.5 x10^3/uL (4.0-11.0) Red Blood Count 4.04 x10^6/uL (3.50-5.40) Hemoglobin 13.2 g/dL (12.0-15.5) Hematocrit 39.5 % (36.0-47.0) 33.6 % (36.0-47.0) Mean Corpuscular Volume 98 fL (79-100) Mean Corpuscular Hemoglobin 33 pg (25-35) Mean Corpuscular Hemoglobin Concent 34 g/dL (31-37) Red Cell Distribution Width 13.6 % (11.5-14.5) Platelet Count 192 x10^3/uL (140-400) Sodium Level 138 mmol/L (136-145) Potassium Level 4.1 mmol/L (3.5-5.1) Chloride Level 102 mmol/L (98-107) Carbon Dioxide Level 25 mmol/L (21-32) Anion Gap 11 (6-14) Blood Urea Nitrogen 9 mg/dL (7-20) Creatinine 1.1 mg/dL (0.6-1.0) Estimated GFR (Cockcroft-Gault) 47.9 Glucose Level 118 mg/dL (70-99) Calcium Level 8.4 mg/dL (8.5-10.1) Laboratory Tests Test 02/06/20 16:08 02/07/20 05:12 White Blood Count 10.5 x10^3/uL (4.0-11.0) Red Blood Count 4.04 x10^6/uL (3.50-5.40) Hemoglobin 13.2 g/dL (12.0-15.5) Hematocrit 39.5 % (36.0-47.0) 33.6 % (36.0-47.0) Mean Corpuscular Volume 98 fL (79-100) Mean Corpuscular Hemoglobin 33 pg (25-35) Mean Corpuscular Hemoglobin Concent 34 g/dL (31-37) Red Cell Distribution Width 13.6 % (11.5-14.5) Platelet Count 192 x10^3/uL (140-400) Sodium Level 138 mmol/L (136-145) Potassium Level 4.1 mmol/L (3.5-5.1) Chloride Level 102 mmol/L (98-107) Carbon Dioxide Level 25 mmol/L (21-32) Anion Gap 11 (6-14) Blood Urea Nitrogen 9 mg/dL (7-20) Creatinine 1.1 mg/dL (0.6-1.0) Estimated GFR (Cockcroft-Gault) 47.9 Glucose Level 118 mg/dL (70-99) Calcium Level 8.4 mg/dL (8.5-10.1) Brief Hospital Course Ms. Heredia is a 79 old female who presented with an IUD for several years and developing pain with small atrophic uterus. She underwent LAVH/BSO and incidentialy had a tick noticed on right upper leg when positioning her for surgery. She has had an unremarkable postoperative course and is desiring to go home. She has minimal pain, ambulating well, voiding without catheter, AFVSS, tolerating diet without n/v Assessment Assessment POD#1 s/p LAVH/BSO and removal of tick off right upper leg Routine PO care NPV x 6 weeks light/limited activity x 2 weeks [place] written OK for OTC ibuprofen as needed also keep scheduled follow up call or return sooner for any questions or concerns not limited to but including pain unrelieved with pain meds, T>100.4, increased or unexplained vaginal bleeding, n/v or anything else d/c to home Discharge Information Condition at Discharge: Stable Follow Up: Weeks Disposition/Orders: D/C to Home Scheduled Calcium Citrate (Calcitrate) 200 Mg Tablet, 1,000 MG PO DAILY, (Reported) Entered as Reported by: MICAH BRYSON on 07/29/131934 Last Taken: Unknown Dose on 01/30/20 Last Action: HELD on 02/06/20 1324 by EVER PALAFOX Cholecalciferol (Vitamin D3) (Vitamin D) 1,000 Unit Capsule, 1 CAP PO DAILY, #30 Ref 3 (Reported) Entered as Reported by: JUNE DOLAN on 08/13/15 1257 Last Taken: Unknown Dose on 01/30/20 Last Action: HELD on 02/06/20 1324 by EVER PALAFOX D-Mannose (Mannxtra) 300 Gm Powder, 300 GM PO DAILY for unk, (Reported) Entered as Reported by: YUVAL ARGUELLO on 12/19/19 1344 Last Taken: Unknown Dose on 02/05/20 Last Action: HELD on 02/06/20 1324 by EVER PALAFOX Gabapentin (Gabapentin) 600 Mg Tablet, 600 MG PO TID for nerve pain, (Reported) Entered as Reported by: JOHNATHAN CALDERÓN on 05/14/18 1253 Last Taken: Unknown Dose on 02/05/20 Last Action: Converted on 02/06/20 1324 by EVER PALAFOX Glucosam/Msm/Vit C/Tuan/Hrb#21 (Glucosamine-Msm Complex Tab) 1 Each Tablet, 1 EACH PO BID, (Reported) Entered as Reported by: JUNE DOLAN on 08/13/15 1256 Last Taken: Unknown Dose on 01/30/20 Last Action: HELD on 02/06/20 1324 by EVER PALAFOX Lactobacillus Acidophilus (Probiotic) 1 Each Capsule, 1 EACH PO DAILY for supp, (Reported) Entered as Reported by: YUVAL ARGUELLO on 12/19/19 1344 Last Taken: Unknown Dose on 01/30/20 Last Action: HELD on 02/06/20 1324 by EVER PALAFOX Meloxicam (Meloxicam) 7.5 Mg Tablet, 1 TAB PO DAILY for arthritis for 30 Days, #30 Ref 0 (Reported) Entered as Reported by: YUVAL ARGUELLO on 12/19/19 1344 Last Taken: Unknown Dose on 02/05/20 Last Action: HELD on 02/06/20 1324 by EVER PALAFOX Multivitamin (Multi Vitamin Daily) 1 Each Tablet, 1 EACH PO DAILY, (Reported) Entered as Reported by: JUNE DOLAN on 08/13/15 1258 Last Taken: Unknown Dose on 01/30/20 Last Action: HELD on 02/06/20 1324 by EVER PALAFOX [place]-3 Fatty Acids (Fish Oil) 500 Mg Capsule.dr, 1,000 MG PO DAILY, (Reported) Entered as Reported by: JUNE DOLAN on 08/13/15 1256 Last Taken: Unknown Dose on 01/30/20 Last Action: HELD on 02/06/201323 by EVER PALAFOX Pantoprazole Sodium (Pantoprazole Sodium ) 40 Mg Tablet.dr, 20 MG PO HS for GERD, (Reported) Entered as Reported by: JUNE DOLAN on 08/13/15 1254 Last Taken: Unknown Dose on 02/05/20 Last Action: Continued on 02/06/201323 by EVER PALAFOX Pramipexole Di-Hcl (Mirapex) 0.25 Mg Tablet, 0.125 MG PO DAILY for restless legs, (Reported) Entered as Reported by: YUVAL ARGUELLO on 12/19/19 134 Last Taken: Unknown Dose on 02/05/20 Last Action: Continued on 02/06/201323 by EVER PALAFOX Simvastatin (Simvastatin) 5 Mg Tablet, 40 MG PO HS, (Reported) Entered as Reported by: MICAH BRYSON on 07/29/131934 Last Taken: Unknown Dose on 02/05/20 Last Action: Continued on 02/06/201323 by EVER PALAFOX Scheduled PRN Tramadol Hcl (Tramadol Hcl) 50 Mg Tablet, 50 MG PO Q6HRS PRN for PAIN, (Reported) Entered as Reported by: YUVAL ARGUELLO on 12/19/191343 Last Taken: Unknown Dose on 02/05/20 Last Action: HELD on 02/06/201323 by EVER PALAFOX Discontinued Medications Cranberry Extract (Cranberry) 250 Mg Capsule, 250 MG PO DAILY for supp, (Reported) Entered as Reported by: YUVAL ARGUELLO on 12/19/19 1344 Patient Instructions Patient Instructions POD#1 s/p LAVH/BSO and removal of tick off right upper leg Routine PO care NPV x 6 weeks light/limited activity x 2 weeks [place] written OK for OTC ibuprofen as needed also keep scheduled follow up call or return sooner for any questions or concerns not limited to but including pain unrelieved with pain meds, T>100.4, increased or unexplained vaginal b leeding, n/v or anything else d/c to home Justicifation of Admission Dx: Justifications for Admission: Justification of Admission Dx: Comment: (postoperative) EVER PALAFOX MD Feb 07, 2020 09:15
[2020-02-07] MEDS ORDERED: HYDR-3164 PO (09:22)
[2020-02-07] MEDS ORDERED: HYDROcodone/APAP 5/325MG 1 TAB TABLET PO PRN ×2 (09:45)
[2020-02-07] MEDS ORDERED: BISACODYL 10 MG SUPP.RECT. PR ONE (09:45)
[2020-02-07 10:00] VITALS: BP 106/58
[2020-02-07] MEDS: GABAPENTIN 300 MG CAPSULE. PO SCH (10:05)
--- NOTE | 2020-02-08 17:07 | PATHOLOGY ---
[facility] Accession Number: [id number] . 01 Material submitted: . uterus - UTERUS,CERVIX,BILATERAL FALLOPIAN TUBES,BILATERAL OVARIES,IUD . 01 Clinical history: . Pelvic pain, IUD mechanical complication . 02 Diagnosis: Uterus and attached bilateral fallopian tubes and ovaries, laparoscopic assisted vaginal hysterectomy with bilateral salpingo-oophorectomy: - Adenomyosis, uterine corpus. - Nabothian cysts, endocervix. - Presence of IUD within endometrial cavity, with focal low grade chronic endometritis. - Endometrial polyp. - Atrophic endometrium. - Involutional changes of bilateral fallopian tubes and ovaries. - Separate detached segment of squamous mucosa and submucosal tissue identified showing focal slight chronic inflammation. (JPM:bertha; 02/08/2020) [facility] 02/08/2020 0901 Local . 02 Comment: There is no atypia or evidence of malignancy. (JPM:bertha; 02/08/2020) . 02 Electronically signed: . Frank Barajas MD, Pathologist NPI- [id number] . 01 Gross description: . The specimen is received in formalin labeled "Tara Long, uterus, cervix, bilateral fallopian tubes, bilateral ovaries, IUD". Received is a 42 g, 7.2 x 3.6 x 2.7 cm uterus with attached cervix and attached adnexa, weighing 3 and 4 g, left and right, respectively. The uterine serosa is pink-martin to pink-rosas and smooth in appearance. The 0.6 cm cervical os is surrounded by pink-rosas, ragged ectocervical mucosa. There are two strings extending out from the cervical os, indicative of IUD. The uterus is oriented using the peritoneal reflection and the anterior paracervical margin is inked black. The uterus is opened laterally to reveal a pale martin endocervical canal measuring 2.3 cm in length. The endometrial cavity is triangular measuring 4.1 cm in length by 2.5 cm in width. Within the endometrial cavity, a white serpiginous IUD is identified measuring 3.2 cm in length by 3.2 cm in width. The endometrium is pale martin, glistening in appearance and measures 0.1 cm in thickness. An endometrial polyp is identified, which was cut from its location upon opening of the uterus, measuring 1.6 x 0.5 x 0.2 cm in greatest dimensions. The surgical margin is inked and the segment is bisected. Serial sectioning reveals a martin-pink, trabeculated myometrium measuring 1.2 cm in thickness with no grossly distinct nodules or lesions. . The left adnexa consists of a fimbriated fallopian tube measuring 5.3 cm in length by up to 0.5 cm in diameter attached to a 1.1 x 1.1 x 1.0 cm ovary. Sectioning through the fallopian tube reveals a pinpoint lumen and the fallopian tube appears grossly unremarkable. Sectioning through the ovary reveals pale martin, normal ovarian stroma. . The right adnexa consists of a fimbriated fallopian tube measuring 4.4 cm in length by up to 0.5 cm in diameter attached to a 1.3 x 0.8 x 0.6 cm ovary. Sectioning through the fallopian tube reveals a pinpoint lumen and the fallopian tube appears grossly unremarkable. Sectioning through the ovary reveals pale martin, normal ovarian stroma. . Also received within the specimen container is a segment of pink-rosas, shaggy possible vaginal mucosa measuring 6.8 x 1.9 x 0.5 cm in greatest dimensions. The specimen is submitted representatively as follows: . A1 12:00 cervix A2 6:00 cervix A3 anterior endomyometrium A4 posterior endomyometrium A5 endometrial polyp A6 left adnexa A7 right adnexa A8 business banking representative sections of separately submitted possible vaginal mucosa. (CAA; 02/07/2020) QA/[facility] 02/07/2020 1217 Local . 02 Pathologist provided ICD-10: N80.0, N84.0, N85.8, N71.1, N88.8 . 02 CPT . 742360 Specimen Comment: A courtesy copy of this report has been sent to [phone], [phone] Specimen Comment: [id number] Specimen Comment: Report sent to / DR OCHOA Performed at: 01 [id number] [address] [id number] MD Alvaro Clemente MD Phone: [phone] Performed at: [facility] [address] [place], [place] [id number] MD Frank Barajas MD Phone: [phone]
== END 2020-02-07 10:51 | disposition home or self-care (01) ==
LOC: SURG 08:35 → 3 NORTH 13:30
PROVIDERS: ADMIT Obstetrics & Gynecology; ATTEND Obstetrics & Gynecology
DX: T83.9XXA Unspecified complication of genitourinary prosthetic device, implant and graft, initial encounter (principal); R10.2 Pelvic and perineal pain; N95.2 Postmenopausal atrophic vaginitis
CPT/HCPCS: 36415; 58552; 80048; 85014; 85027; 86850; 86900; 86901; A7015; G0378; G0379; J1100; J1956; J2704; J2710; J3010; J3480; J3490; J7030; 88307; J2405

== ENCOUNTER 2020-04-15 07:37 | Observation (INO) | payer BC ==
[~2020-04-15] VITALS: Ht 149.9 cm; Wt 75.0 kg
[~2020-04-15 07:37] MED LIST changes: -CLINDAMYCIN 600MG PREMIX 50 ML IV PRN; -CLINDAMYCIN 900MG PREMIX 50 ML IV ONE; +HYDR-3164 PO; -HYDROmorphone 2 MG/ML VIAL IVP PRN; -IV RINGERS,LACTATED 1000ML 1,000 ML IV SCH; -LIDOCAINE 1% PF 2 ML VIAL. ID PRN; -MORPHINE SULFATE 2 MG/ML VIAL. IVP PRN; -ONDANSETRON PF 4 MG/2 ML VIAL. IVP PRN; -PROCHLORPERAZINE 10 MG/2 ML VIAL. IVP PRN; -fentaNYL PF VIAL 100 MCG/2 ML VIAL IVP PRN
[2020-04-15] MEDS ORDERED: ASPIRIN CHEWABLE 81 MG TABLET. PO ONE (07:45)
--- NOTE | 2020-04-15 08:19 | EKG ---
[facility] [address] [place] [address] Test Date: 2020-04-15 Test Time: 07:46:52 Pat Name: SPENCER ZEE Department: Room: Gender: F Senior Speech Pathologist: : 1940 Requested By: VANDANA HERNANDEZ Order Number: [id number] Reading MD: Measurements Intervals [place] Rate: 81 P: 34 NH: 142 QRS: -25 QRSD: 80 T: 16 QT: 348 QTc: 405 Interpretive Statements SINUS RHYTHM LEFTWARD AXIS LOW LIMB LEAD VOLTAGE NO SPECIFIC ECG ABNORMALITIES RI6.01 No previous ECG available for comparison
[2020-04-15 08:20] LABS: BASO # 0.1 x10^3/uL (0.0-0.2); BASO % 1 % (0-3); EOS # 0.2 x10^3/uL (0.0-0.7); EOS % 2 % (0-3); HEMATOCRIT 40.3 % (36.0-47.0); HEMOGLOBIN 13.8 g/dL (12.0-15.5); LYMPH # 1.8 x10^3/uL (1.0-4.8); LYMPH % 27 % (24-48); MEAN CORPUSCULAR HEMOGLOBIN 33 pg (25-35); MEAN CORPUSCULAR HGB CONC 34 g/dL (31-37); MEAN CORPUSCULAR VOLUME 97 fL (79-100); MONO # 0.6 x10^3/uL (0.0-1.1); MONO % 8 % (0-9); NEUT # 4.1 x10^3/uL (1.8-7.7); NEUT % 61 % (31-73); PLATELET COUNT 192 x10^3/uL (140-400); RED BLOOD COUNT 4.16 x10^6/uL (3.50-5.40); RED CELL DISTRIBUTION WIDTH 13.2 % (11.5-14.5); WHITE BLOOD COUNT 6.6 x10^3/uL (4.0-11.0)
[2020-04-15 08:28] LABS: PROTHROMBIN TIME PATIENT 12.6 SEC (11.7-14.0)
--- NOTE | 2020-04-15 08:28 | RAD ---
AP chest. HISTORY: Chest pain AP view was taken of the chest. There is arthritis in both shoulders. There is a large hiatus hernia. There are no acute infiltrates. There is no pleural effusion. IMPRESSION: 1. Large hiatus hernia. 2. No acute infiltrates. Electronically signed by: Jc Bruce MD (04/15/2020 8:25 AM) [id number]
[2020-04-15 08:29] LABS: CALCIUM 8.9 mg/dL (8.5-10.1); CREATININE 0.9 mg/dL (0.6-1.0); GFR 60.4; POTASSIUM 4.2 mmol/L (3.5-5.1)
[2020-04-15 08:34] LABS: ALBUMIN/GLOBULIN RATIO 1.2 (1.0-1.7); TOTAL BILIRUBIN 0.5 mg/dL (0.2-1.0); TOTAL PROTEIN 7.4 g/dL (6.4-8.2)
--- NOTE | 2020-04-15 08:47 | PHYS DOC ---
Past Medical History Past Medical History: High Cholesterol, Hypertension Additional Past Medical Histor: SYNCOPAL EVENTS, Past Surgical History: Cholecystectomy, Hysterectomy Additional Past Surgical Histo: SHOULDER, Smoking Status: Never Smoker Alcohol Use: None Drug Use: None General Adult EDM: Chief Complaint: CHEST PAIN HPI: HPI: Patient is a 79-year-old female who presents this morning after she developed some chest pain overnight. She states the pain was under her breast and tight she had some associated shortness of breath. She denied any nausea or diaphoresis. She states for the last 3 days she has had some spells where she is felt a little bit disoriented. She is not passed out. She denies any dyspnea on exertion. She denies any exertional chest discomfort. She denies any fever chills sweats cough or congestion. She denies hemoptysis. [] Review of Systems: Review of Systems: Constitutional: Denies fever or chills. [] Eyes: Denies change in visual acuity. [] HENT: Denies nasal congestion or sore throat. [] Respiratory: Denies cough or shortness of breath. [] Cardiovascular: Per HPI. [] GI: Denies abdominal pain, nausea, vomiting, bloody stools or diarrhea. [] : Denies dysuria. [] Musculoskeletal: Denies back pain or joint pain. [] Integument: Denies rash. [] Neurologic: Denies headache, focal weakness or sensory changes. [] Endocrine: Denies polyuria or polydipsia. [] Lymphatic: Denies swollen glands. [] Psychiatric: Denies depression or anxiety. [] Heart Score: HEART Score for Chest Pain: HEART Score for Chest Pain Response (Comments) Value History Moderately Suspicious 1 ECG Normal 0 Age > 65 2 Troponin < Normal Limit 0 Total 3 Risk Factors: Risk Factors: DM, Current or recent (<one month) smoker, HTN, HLP, family history of CAD, obesity. Risk Scores: Score 0 - 3: 2.5% MACE over next 6 weeks - Discharge Home Score 4 - 6: 20.3% MACE over next 6 weeks - Admit for Clinical Observation Score 7 - 10: 72.7% MACE over next 6 weeks - Early Invasive Strategies Current Medications: Current Medications Medications (Trade) Dose Ordered Sig/Jesus Start Time Stop Time Status Last Admin Dose Admin Aspirin (Aspirin Chewable) 324 mg 1X ONCE 04/15/20 07:45 04/15/20 07:46 DC 04/15/20 08:36 324 MG Allergies: Allergies: Allergies Coded Allergies Type Severity Reaction Last Updated Verified Penicillins Allergy Severe angioedema 04/15/20 Yes Sulfa (Sulfonamide Antibiotics) Allergy Intermediate Rash 04/15/20 Yes Physical Exam: PE: Constitutional: Well developed, well nourished, no acute distress, non-toxic appearance. [] HENT: Normocephalic, atraumatic, bilateral external ears normal, oropharynx moist, no oral exudates, nose normal. [] Eyes: PERRLA, EOMI, conjunctiva normal, no discharge. [] Neck: Normal range of motion, no tenderness, supple, no stridor. [] Cardiovascular:Heart rate regular rhythm, no murmur [] Lungs & Thorax: Bilateral breath sounds clear to auscultation [] Abdomen: Bowel sounds normal, soft, no tenderness, no masses, no pulsatile masses. [] Skin: Warm, dry, no erythema, no rash. [] Back: No tenderness, no CVA tenderness. [] Extremities: No tenderness, no cyanosis, no clubbing, ROM intact, no edema. [] Neurologic: Alert and oriented X 3, normal motor function, normal sensory function, no focal deficits noted. [] Psychologic: Extremely anxious [] Current Patient Data: Labs: Laboratory Tests Test 04/15/20 08:00 White Blood Count 6.6 x10^3/uL (4.0-11.0) Red Blood Count 4.16 x10^6/uL (3.50-5.40) Hemoglobin 13.8 g/dL (12.0-15.5) Hematocrit 40.3 % (36.0-47.0) Mean Corpuscular Volume 97 fL (79-100) Mean Corpuscular Hemoglobin 33 pg (25-35) Mean Corpuscular Hemoglobin Concent 34 g/dL (31-37) Red Cell Distribution Width 13.2 % (11.5-14.5) Platelet Count 192 x10^3/uL (140-400) Neutrophils (%) (Auto) 61 % (31-73) Lymphocytes (%) (Auto) 27 % (24-48) Monocytes (%) (Auto) 8 % (0-9) Eosinophils (%) (Auto) 2 % (0-3) Basophils (%) (Auto) 1 % (0-3) Neutrophils # (Auto) 4.1 x10^3/uL (1.8-7.7) Lymphocytes # (Auto) 1.8 x10^3/uL (1.0-4.8) Monocytes # (Auto) 0.6 x10^3/uL (0.0-1.1) Eosinophils # (Auto) 0.2 x10^3/uL (0.0-0.7) Basophils # (Auto) 0.1 x10^3/uL (0.0-0.2) Prothrombin Time 12.6 SEC (11.7-14.0) Prothrombin Time INR 1.0 (0.8-1.1) Sodium Level 140 mmol/L (136-145) Potassium Level 4.2 mmol/L (3.5-5.1) Chloride Level 101 mmol/L (98-107) Carbon Dioxide Level 27 mmol/L (21-32) Anion Gap 12 (6-14) Blood Urea Nitrogen 13 mg/dL (7-20) Creatinine 0.9 mg/dL (0.6-1.0) Estimated GFR (Cockcroft-Gault) 60.4 BUN/Creatinine Ratio 14 (6-20) Glucose Level 116 mg/dL (70-99) H Calcium Level 8.9 mg/dL (8.5-10.1) Total Bilirubin 0.5 mg/dL (0.2-1.0) Aspartate Amino Transferase (AST) 21 U/L (15-37) Alanine Aminotransferase (ALT) 24 U/L (14-59) Alkaline Phosphatase 102 U/L (46-116) Troponin I Quantitative < 0.017 ng/mL (0.000-0.055) Total Protein 7.4 g/dL (6.4-8.2) Albumin 4.0 g/dL (3.4-5.0) Albumin/Globulin Ratio 1.2 (1.0-1.7) Laboratory Tests 04/15/20 08:00 Laboratory Tests 04/15/20 08:00 Vital Signs: Vital Signs Date Time Temp Pulse Resp B/P (MAP) Pulse Ox O2 Delivery O2 Flow Rate FiO2 04/15/20 07:45 98.6 85 16 174/82 (112) 96 Room Air 98.6 EKG: EKG: EKG: Normal sinus rhythm rate of [address]-T changes [] Radiology/Procedures: Radiology/Procedures: [] Impression: REASON: chest pain PROCEDURE: CHEST AP ONLY AP chest. HISTORY: Chest pain AP view was taken of the chest. There is arthritis in both shoulders. There is a large hiatus hernia. There are no acute infiltrates. There is no pleural effusion. IMPRESSION: 1. Large hiatus hernia. 2. No acute infiltrates. Course & Med Decision Making: Course & Med Decision Making Pertinent Labs and Imaging studies reviewed. (See chart for details) [ED course: Evaluation reveals a 79-year-old female with chest discomfort. Her initial work-up was negative however given her age and risk factors I believe she would benefit from admission to the hospital for definitive wrist ratification. I spoke with the hospitalist who agrees with this assessment will put her in on observation status.] Dragon Disclaimer: Dragon Disclaimer: This electronic medical record was generated, in whole or in part, using a voice recognition dictation system. Departure Departure Impression: Primary Impression: Chest pain Qualified Codes: R07.9 - Chest pain, unspecified Additional Impression: Hiatal hernia Disposition: ADMITTED INPATIENT Admitting Physician: HIMAnder Condition: STABLE Referrals: DARLIN OCHOA DO (PCP) Justicifation of Admission Dx: Justifications for Admission: Justification of Admission Dx: Yes Angina: New-Onset VANDANA HERNANDEZ DO Apr 15, 2020 08:47
[2020-04-15] MEDS ORDERED: ONDANSETRON PF 4 MG/2 ML VIAL. IV PRN (09:00)
[2020-04-15] MEDS ORDERED: NITROGLYCERIN SUBLINGUAL 0.4 MG BOTTLE OF 25. SL PRN (09:00)
[2020-04-15 10:50] VITALS: BP 151/82
[2020-04-15] MEDS ORDERED: GABA300C18 PO (11:14)
--- NOTE | 2020-04-15 12:04 | PDOC2 ---
JEANNE CHAVEZ COUNTERINTELLIGENCE AGENT 04/15/20 1204: CARDIAC CONSULT DATE OF CONSULT Date of Consult DATE: 04/15/20 TIME: 11:59 REASON FOR CONSULT Reason for Consult: Chest pain REFERRING PHYSICIAN Referring Physician: Dr. Josue SOURCE Source: Chart review, Patient HISTORY OF PRESENT ILLNESS HISTORY OF PRESENT ILLNESS This is a 79 yo female who presented secondary to chest pain. Began overnight. Located in her left chest, under her left breast. Describes as pressure. Associated with nausea. No shortness of breath, dizziness, diaphoresis, or palpitations. Left chest does seem to be slightly worse with palpitation. Not worse with eating/drinking. Patient has a history of arthritic back pain. Was recently start on Mobic and gabapentin. Has been taking scheduled for the last couple of weeks. Reports GI side effects to be common with meds. Has known hiatal hernia. Reports she is very active at home. No reports of chest pain or SOA with exertional activities. PAST MEDICAL HISTORY Cardiovascular: HTN, Hyperlipidemia GI: GERD Musculoskeletal: Osteoarthritis PAST SURGICAL HISTORY Past Surgical History: Cholecystectomy FAMILY HISTORY Family History: Other (no pertinent history ) SOCIAL HISTORY Smoke: No ALCOHOL: none Drugs: None Lives: with Family CURRENT MEDICATIONS CURRENT MEDICATIONS Current Medications Medications (Trade) Dose Ordered Sig/Jesus Route PRN Reason Start Time Stop Time Status Last Admin Dose Admin Aspirin (Aspirin Chewable) 324 mg 1X ONCE PO 04/15/20 07:45 04/15/20 07:46 DC 04/15/20 08:36 ALLERGIES ALLERGIES: Coded Allergies: Penicillins (Verified Allergy, Severe, angioedema, 04/15/20) Sulfa (Sulfonamide Antibiotics) (Verified Allergy, Intermediate, Rash, 04/15/20) ROS Review of System 14 point ROS conducted with pertinent positives noted above in HPI PHYSICAL EXAM General: Alert, Oriented X3, Cooperative, No acute distress HEENT: Atraumatic, Mucous membr. moist/pink Lungs: Clear to auscultation Heart: Regular rate, Normal S1, Normal S2, Other (2/ systolic murmur ) Abdomen: Soft Extremities: No edema, Normal pulses Skin: No significant lesion Neuro: Normal speech, Sensation intact Psych/Mental Status: Mental status NL, Mood NL MUSCULOSKELETAL: Osteoarthritic changes both hands VITALS/I&O VITALS/I&O: Vital Signs Date Time Temp Pulse Resp B/P (MAP) Pulse Ox O2 Delivery O2 Flow Rate FiO2 8/18/20 11:26 Room Air 04/15/20 10:50 98.1 77 16 151/82 (105) 96 98.1 LABS Lab: Laboratory Tests Test 04/15/20 08:00 White Blood Count 6.6 x10^3/uL (4.0-11.0) Red Blood Count 4.16 x10^6/uL (3.50-5.40) Hemoglobin 13.8 g/dL (12.0-15.5) Hematocrit 40.3 % (36.0-47.0) Mean Corpuscular Volume 97 fL (79-100) Mean Corpuscular Hemoglobin 33 pg (25-35) Mean Corpuscular Hemoglobin Concent 34 g/dL (31-37) Red Cell Distribution Width 13.2 % (11.5-14.5) Platelet Count 192 x10^3/uL (140-400) Neutrophils (%) (Auto) 61 % (31-73) Lymphocytes (%) (Auto) 27 % (24-48) Monocytes (%) (Auto) 8 % (0-9) Eosinophils (%) (Auto) 2 % (0-3) Basophils (%) (Auto) 1 % (0-3) Neutrophils # (Auto) 4.1 x10^3/uL (1.8-7.7) Lymphocytes # (Auto) 1.8 x10^3/uL (1.0-4.8) Monocytes # (Auto) 0.6 x10^3/uL (0.0-1.1) Eosinophils # (Auto) 0.2 x10^3/uL (0.0-0.7) Basophils # (Auto) 0.1 x10^3/uL (0.0-0.2) Prothrombin Time 12.6 SEC (11.7-14.0) Prothrombin Time INR 1.0 (0.8-1.1) Sodium Level 140 mmol/L (136-145) Potassium Level 4.2 mmol/L (3.5-5.1) Chloride Level 101 mmol/L (98-107) Carbon Dioxide Level 27 mmol/L (21-32) Anion Gap 12 (6-14) Blood Urea Nitrogen 13 mg/dL (7-20) Creatinine 0.9 mg/dL (0.6-1.0) Estimated GFR (Cockcroft-Gault) 60.4 BUN/Creatinine Ratio 14 (6-20) Glucose Level 116 mg/dL (70-99) H Calcium Level 8.9 mg/dL (8.5-10.1) Total Bilirubin 0.5 mg/dL (0.2-1.0) Aspartate Amino Transferase (AST) 21 U/L (15-37) Alanine Aminotransferase (ALT) 24 U/L (14-59) Alkaline Phosphatase 102 U/L (46-116) Troponin I Quantitative < 0.017 ng/mL (0.000-0.055) Total Protein 7.4 g/dL (6.4-8.2) Albumin 4.0 g/dL (3.4-5.0) Albumin/Globulin Ratio 1.2 (1.0-1.7) Laboratory Tests 04/15/20 08:00 Laboratory Tests 04/15/20 08:00 ASSESSMENT/PLAN ASSESSMENT/PLAN 1. Chest pain, atypical. Initial trop negative ? GI related. Has been taking NSAID for 2 weeks due to back pain 2. Accelerated hypertension; remains elevated. Reports BP elevated as recent PCP office visit, but attributed this to back pain 3. Hyperlipidemia; statin 4. Chronic lower-back pain 5. GERD 6. Hiatal hernia Recommendations ASA Lipids, TSH Trend troponin Add lisinopril for BP control Continue statin Echo to assess LV systolic function If troponin series normal and echo WNL, will plan for outpatient stress test. MARK MCCALL MD 04/15/20 1710: CARDIAC CONSULT ASSESSMENT/PLAN ASSESSMENT/PLAN Patient seen and examined. Agree with above nurse practitioner note. JEANNE CHAVEZ APRN Apr 15, 2020 12:04 MARK MCCALL MD Apr 15, 2020 17:10
[2020-04-15 12:22] LABS: CHOLESTEROL/HDL RATIO 3.2
[2020-04-15] MEDS ORDERED: PRAMIPEXOLE 0.25 MG TABLET. PO SCH ×2 (13:00→21:00)
--- NOTE | 2020-04-15 14:01 | HP ---
ADMIT DATE: 04/15/2020 CHIEF COMPLAINT: Chest pain. HISTORY OF PRESENT ILLNESS: The patient is a pleasant middle-aged female who presents with chest pain. It has been occurring off and on for a couple of days, worse with moving, better with sitting still. She took some [id number] meds that did not seem to help, describes as under the breast, mostly on the left with tightness and some associated shortness of breath. I discussed the case with the ER physician. We are going to admit the patient and consult Cardiology. PAST MEDICAL HISTORY: Hypertension, hyperlipidemia, syncope, cholecystectomy, hysterectomy, shoulder pain, back pain, arthritis. ALLERGIES: PENICILLIN AND SULFA. FAMILY HISTORY: Diabetes. SOCIAL HISTORY: She does not drink, smoke or take drugs. She likes to garden. MEDICATIONS: Reviewed, please refer to the MRAD. REVIEW OF SYSTEMS: GENERAL: No history of weight change, weakness or fevers. SKIN: No bruising, hair changes or rashes. EYES: No blurred, double or loss of vision. NOSE AND THROAT: No history of nosebleeds, hoarseness or sore throat. HEART: She complains of chest pain. LUNGS: Denies cough, hemoptysis, wheezing or shortness of breath. GASTROINTESTINAL: Denies changes in appetite, nausea, vomiting, diarrhea or constipation. GENITOURINARY: No history of frequency, urgency, hesitancy or nocturia. NEUROLOGIC: Denies history of numbness, tingling, tremor or weakness. PSYCHIATRIC: No history of panic, anxiety or depression. ENDOCRINE: No history of heat or cold intolerance, polyuria or polydipsia. EXTREMITIES: Denies muscle weakness, joint pain, pain on walking or stiffness. PHYSICAL EXAMINATION: VITALS: Within normal limits and are stable. GENERAL: No apparent distress. Alert and oriented. HEENT: Normal cephalic atraumatic, external auditory canals are patent. Eyes: Extraocular muscles are intact, pupils are equally round and reactive to light and accommodation. MUSCULOSKELETAL: Well developed, well nourished, good range of motion. ENDOCRINE: No thyromegaly was palpated. LYMPHATICS: No cervical chain or axillary nodes were noted. HEMATOPOIETIC: No bruising. NECK: Supple, no JVD, no thyromegaly was noted. LUNGS: Clear to auscultation in all lung bean without rhonchi or wheezing. HEART: RRR, S1, S2 present. Peripheral pulses intact, no obvious murmurs were noted. ABDOMEN: Soft, nontender. Positive bowel sounds no organomegaly, normal bowel sounds. EXTREMITIES: Without any cyanosis, clubbing, or edema. Pedal pulses intact, Homans sign is negative. NEUROLOGIC: Normal speech, normal tone. A and O x 3, moves all extremities, no obvious focal deficits. PSYCHIATRIC: Normal affect, normal mood. Stable. SKIN: No ulcerations or rashes, good skin turgor, no jaundice. VASCULAR: Good capillary refill, neurovascular bundle appears to be intact. LABORATORY DATA: Troponin is 0. ASSESSMENT AND PLAN: Chest pain, rule out coronary artery disease. The patient has been admitted. We are checking serial enzymes, serial EKGs. Consult Cardiology. Home meds, DVT prophylaxis. Full code. BRANDO SILVA DO DR: CHAPIN/napoleon JOB#: [id number] / [id number]
[2020-04-15] MEDS: CALCIUM CARB/VIT D3 500/200 TABLET. PO SCH (14:08)
[2020-04-15] MEDS: OMEGA-3 FATTY ACIDS/FISH OIL 1,000 MG CAPSULE. PO SCH (14:08)
[2020-04-15] MEDS: MULTIVITAMIN with MINERAL TABLET. PO SCH (14:08)
[2020-04-15] MEDS: LACTOBACILLUS RHAMNOSUS GG 1 CAPSULE. PO SCH (14:08)
[2020-04-15] MEDS: ASPIRIN ENTERIC COATED 81 MG TABLET.DR. PO SCH (14:09)
[2020-04-15] MEDS: ACETAMINOPHEN/CODEINE 300/30MG TABLET. PO PRN (14:34)
[2020-04-15 15:00] VITALS: BP 134/72
--- NOTE | 2020-04-15 17:15 | CARD ---
MR#: [id number] Date of Study: 04/15/2020 Ordering Physician: JEANNE CHAVEZ, Referring Physician: JEANNE CHAVEZ, Tech: Leslie Nobles APPROVED REPORT EXAM: Two-dimensional and M-mode echocardiogram with Doppler and color Doppler. Other Information Quality : AverageHR: 94bpm INDICATION Chest Pain RISK FACTORS Hyperlipidemia 2D DIMENSIONS RVDd2.0 (2.9-3.5cm)Left Atrium(2D)2.6 (1.6-4.0cm) IVSd0.9 (0.7-1.1cm)Aortic Root(2D)2.8 (2.0-3.7cm) LVDd4.0 (3.9-5.9cm)PWd1.0 (0.7-1.1cm) LVDs2.8 (2.5-4.0cm)FS (%) 29.7 % SV39.6 mlLVEF(%)57.4 (>50%) Aortic Valve AoV Peak Justin.136.3cm/sAoV VTI23.8cm AO Peak GR.7.4mmHgLVOT Peak Justin.107.1cm/s LVOT VTI 18.99cmAO Mean GR.4mmHg Mitral Valve MV E Rcsndpom97.9cm/sMV DECEL [id number] MV A Xnbdcnxt91.6cm/sMV E Mean Gr.2mmHg MV WYC18ztR/A Ratio0.9 MVA (PHT)3.45cm2 TDI E/Lateral E'9.0E/Medial E'14.3 Pulmonary Valve PV Peak Zumnsnfr45.7cm/sPV Peak Grad.3mmHg Tricuspid Valve TR P. Zlzinotr853bn/sTR Peak Gr.32mmHg Pulmonary Vein S1 Oslslzuo37.7cm/sD2 Nvirrrxi75.2cm/s PVa [id number] LEFT VENTRICLE The left ventricle is normal size. There is normal left ventricular wall thickness. The left ventricu lar systolic function is normal and the ejection fraction is within normal range. The Ejection Fracti on is 50-55%. There is normal LV segmental wall motion. Transmitral Doppler flow pattern is Grade I-a bnormal relaxation pattern. RIGHT VENTRICLE The right ventricle is normal size. There is normal right ventricular wall thickness. The right ventr icular systolic function is normal. ATRIA The left atrium size is normal. There is increased echogenicity appearing in the left atria. The righ t atrium size is normal. The interatrial septum is intact with no evidence for an atrial septal defec t or patent foramen ovale as noted on 2-D or Doppler imaging. AORTIC VALVE The aortic valve is normal in structure and function. Doppler and Color Flow revealed no significant aortic regurgitation. There is no significant aortic valvular stenosis. MITRAL VALVE The mitral valve is normal in structure and function. There is no evidence of mitral valve prolapse. There is no mitral valve stenosis. Doppler and Color Flow revealed no mitral valve regurgitation note d. TRICUSPID VALVE The tricuspid valve is not well visualized. Doppler and Color Flow revealed trace to mild tricuspid r egurgitation with an estimated PAP of 42 mmHg. There is no tricuspid valve stenosis. PULMONIC VALVE The pulmonic valve is not well visualized. Doppler and Color Flow revealed no pulmonic valvular regur gitation. GREAT VESSELS The aortic root is normal in size. The ascending aorta is normal in size. The IVC is normal in size a nd collapses >50% with inspiration. PERICARDIAL EFFUSION There is no evidence of significant pericardial effusion. Critical Notification Critical Value: No <Conclusion> The left ventricle is normal size. The left ventricular systolic function is normal and the ejection fraction is within normal range. The Ejection Fraction is 50-55%. The left atrium size is normal. There is increased echogenicity appearing in the left atria. Doppler and Color Flow revealed no significant aortic regurgitation. There is no significant aortic valvular stenosis. Doppler and Color Flow revealed no mitral valve regurgitation noted. Doppler and Color Flow revealed trace to mild tricuspid regurgitation with an estimated PAP of 42 mmH g. Signed by : Luis Fernando Burgess MD Electronically Approved : 04/15/2020 17:14:27
[2020-04-15 19:00] VITALS: BP 128/92
[2020-04-15] MEDS ORDERED: PANTOPRAZOLE 40 MG TABLET.DR. PO SCH (21:00)
[2020-04-15] MEDS ORDERED: MSM PO SCH (21:00)
[2020-04-15] MEDS ORDERED: HRB PO SCH (21:00)
[2020-04-15] MEDS ORDERED: SIMVASTATIN 40 MG TABLET. PO SCH (21:00)
[2020-04-15] MEDS ORDERED: VIT C PO SCH (21:00)
[2020-04-15] MEDS ORDERED: MANG PO SCH (21:00)
[2020-04-15] MEDS ORDERED: GLUCOSAM PO SCH (21:00)
[2020-04-15] MEDS ORDERED: [UNRECOGNIZED DRUG - OTHER] PO SCH (21:00)
[2020-04-15 22:51] VITALS: BP 128/69
[2020-04-16 03:00] VITALS: BP 114/60
[2020-04-16 07:00] VITALS: BP 124/67
[2020-04-16] MEDS: ASPIRIN ENTERIC COATED 81 MG TABLET.DR. PO SCH (08:00)
[2020-04-16] MEDS: OMEGA-3 FATTY ACIDS/FISH OIL 1,000 MG CAPSULE. PO SCH (08:21)
[2020-04-16] MEDS: MULTIVITAMIN with MINERAL TABLET. PO SCH (08:21)
[2020-04-16] MEDS: LACTOBACILLUS RHAMNOSUS GG 1 CAPSULE. PO SCH (08:21)
[2020-04-16] MEDS: CALCIUM CARB/VIT D3 500/200 TABLET. PO SCH (08:21)
[2020-04-16] MEDS: ACETAMINOPHEN/CODEINE 300/30MG TABLET. PO PRN (08:23)
[2020-04-16] MEDS ORDERED: CHOLECALCIFEROL (VITAMIN D3) 1,000 UNIT TABLET PO SCH (09:00)
[2020-04-16] MEDS ORDERED: D MANNOSE PO SCH (09:00)
[2020-04-16] MEDS ORDERED: LISINOPRIL 10 MG TABLET PO SCH (09:00)
--- NOTE | 2020-04-16 09:42 | NUR ---
SS following for discharge planning. SS reviewed pt chart and discussed with pt RN. Pt is from home with spouse and is currently on room air. Pt had ECHO on 04/15/2020. Possible discharge to home today. SS will continue to follow for discharge planning.
[2020-04-16 11:00] VITALS: BP 130/63
--- NOTE | 2020-04-16 11:39 | PDOC ---
JEANNE CHAVEZ APRN 04/16/20 1139: CARDIO Progress Notes Date and Time Date of Service 04/16/20 Time of Evaluation 1110 Subjective Subjective: No Chest Pain, No shortness of breath, No Palpitations, Other (c/o right earache ) Vitals Vitals Vital Signs Date Time Temp Pulse Resp B/P (MAP) Pulse Ox O2 Delivery O2 Flow Rate FiO2 04/16/20 09:23 18 Room Air 04/16/20 07:00 98.1 91 124/67 (86) 96 98.1 Weight Weight [ ] Input and Output Intake and Output Intake and Output 04/16/20 07:00 Intake Total 1300 ml Balance 1300 ml Intake Oral 1300 ml # Voids 7 Laboratory Labs Laboratory Tests Test 04/15/20 12:20 04/15/20 15:25 Troponin I Quantitative < 0.017 ng/mL (0.000-0.055) < 0.017 ng/mL (0.000-0.055) Physical Exam HEENT: Neck Supple W Full Motion Chest: Symmetric LUNGS: Clear to Auscultation Heart: RRR, murmurs (2/6 systolic murmur) Abdomen: Soft N/T Extremities: No Edema Neurology: alert, oriented, follow commands Assessment Assessment 1. Chest pain, atypical. Initial trop negative ? GI related. Has been taking NSAID for 2 weeks due to back pain. Echo with preserved LV systolic function 2. Accelerated hypertension; now controlled 3. Hyperlipidemia; statin 4. Chronic lower-back pain 5. GERD 6. Hiatal hernia Recommendations BP now controlled without therapy. Will discontinue Lisinopril as patient does not want to take. Continue statin Avoid NSAIDS Outpatient stress test arranged Follow up in our office with Dr. Mcdowell as scheduled.. Justicifation of Admission Dx: Justifications for Admission: Justification of Admission Dx: Yes Angina: New-Onset MARK MCDOWELL MD 04/16/20 1712: JEANNE CHAVEZ APRN Apr 16, 2020 11:39 MARK MCDOWELL MD Apr 16, 2020 17:12
--- NOTE | 2020-04-16 14:49 | PDOC3 ---
Discharge Summary Visit Information Date of Admission: Apr 15, 2020 Date of Discharge: Apr 16, 2020 Admitting Diagnosis Comment: Chest pain, rule out coronary artery disease. Final Diagnosis Problems Medical Problems: (1) Chest pain Status: Acute (2) Hiatal hernia Status: Acute 1. Chest pain, atypical. Initial trop negative ? GI related. Has been taking NSAID for 2 weeks due to back pain 2. Essential hypertension most likely a little bit more elevated than usual due to back pain 3. Hyperlipidemia; statin 4. Chronic lower-back pain 5. GERD 6. Hiatal hernia Brief Hospital Course Allergies Allergies Coded Allergies Type Severity Reaction Last Updated Verified Penicillins Allergy Severe angioedema 04/15/20 Yes Sulfa (Sulfonamide Antibiotics) Allergy Intermediate Rash 04/15/20 Yes Vital Signs Vital Signs Date Time Temp Pulse Resp B/P (MAP) Pulse Ox O2 Delivery O2 Flow Rate FiO2 04/16/20 11:00 98.0 78 18 130/63 (85) 96 Room Air 98.0 Lab Results Laboratory Tests Test 04/15/20 08:00 04/15/20 12:20 04/15/20 15:25 White Blood Count 6.6 x10^3/uL (4.0-11.0) Red Blood Count 4.16 x10^6/uL (3.50-5.40) Hemoglobin 13.8 g/dL (12.0-15.5) Hematocrit 40.3 % (36.0-47.0) Mean Corpuscular Volume 97 fL (79-100) Mean Corpuscular Hemoglobin 33 pg (25-35) Mean Corpuscular Hemoglobin Concent 34 g/dL (31-37) Red Cell Distribution Width 13.2 % (11.5-14.5) Platelet Count 192 x10^3/uL (140-400) Neutrophils (%) (Auto) 61 % (31-73) Lymphocytes (%) (Auto) 27 % (24-48) Monocytes (%) (Auto) 8 % (0-9) Eosinophils (%) (Auto) 2 % (0-3) Basophils (%) (Auto) 1 % (0-3) Neutrophils # (Auto) 4.1 x10^3/uL (1.8-7.7) Lymphocytes # (Auto) 1.8 x10^3/uL (1.0-4.8) Monocytes # (Auto) 0.6 x10^3/uL (0.0-1.1) Eosinophils # (Auto) 0.2 x10^3/uL (0.0-0.7) Basophils # (Auto) 0.1 x10^3/uL (0.0-0.2) Prothrombin Time 12.6 SEC (11.7-14.0) Prothromb Time International Ratio 1.0 (0.8-1.1) Sodium Level 140 mmol/L (136-145) Potassium Level 4.2 mmol/L (3.5-5.1) Chloride Level 101 mmol/L (98-107) Carbon Dioxide Level 27 mmol/L (21-32) Anion Gap 12 (6-14) Blood Urea Nitrogen 13 mg/dL (7-20) Creatinine 0.9 mg/dL (0.6-1.0) Estimated GFR (Cockcroft-Gault) 60.4 BUN/Creatinine Ratio 14 (6-20) Glucose Level 116 mg/dL (70-99) Calcium Level 8.9 mg/dL (8.5-10.1) Total Bilirubin 0.5 mg/dL (0.2-1.0) Aspartate Amino Transf (AST/SGOT) 21 U/L (15-37) Alanine Aminotransferase (ALT/SGPT) 24 U/L (14-59) Alkaline Phosphatase 102 U/L (46-116) Troponin I Quantitative < 0.017 ng/mL (0.000-0.055) < 0.017 ng/mL (0.000-0.055) < 0.017 ng/mL (0.000-0.055) Total Protein 7.4 g/dL (6.4-8.2) Albumin 4.0 g/dL (3.4-5.0) Albumin/Globulin Ratio 1.2 (1.0-1.7) Triglycerides Level 163 mg/dL (0-150) Cholesterol Level 209 mg/dL (0-200) LDL Cholesterol, Calculated 111 mg/dL (0-100) VLDL Cholesterol, Calculated 33 mg/dL (0-40) Non-HDL Cholesterol Calculated 144 mg/dL (0-129) HDL Cholesterol 65 mg/dL (40-60) Cholesterol/HDL Ratio 3.2 Thyroid Stimulating Hormone (TSH) 2.948 uIU/mL (0.358-3.74) Laboratory Tests Test 04/15/20 15:25 Troponin I Quantitative < 0.017 ng/mL (0.000-0.055) Brief Hospital Course HISTORY OF PRESENT ILLNESS This is a 79 yo female who presented secondary to chest pain. Began overnight. Located in her left chest, under her left breast. Describes as pressure. Associated with nausea. No shortness of breath, dizziness, diaphoresis, or palpitations. Left chest does seem to be slightly worse with palpitation. Not worse with eating/drinking. Patient has a history of arthritic back pain. Was recently start on Mobic and gabapentin. Has been taking scheduled for the last couple of weeks. Reports GI side effects to be common with meds. Has known hiatal hernia. Reports she is very active at home. No reports of chest pain or SOA with exertional activities. She underwent an echocardiogram and serial cardiac enzymes with negative results the results are as follows <Conclusion> The left ventricle is normal size. The left ventricular systolic function is normal and the ejection fraction is within normal range. The Ejection Fraction is 50-55%. The left atrium size is normal. There is increased echogenicity appearing in the left atria. Doppler and Color Flow revealed no significant aortic regurgitation. There is no significant aortic valvular stenosis. Doppler and Color Flow revealed no mitral valve regurgitation noted. Doppler and Color Flow revealed trace to mild tricuspid regurgitation with an estimated PAP of 42 mmHg. Signed by : Luis Fernando Burgess MD Electronically Approved : 04/15/2020 17:14:27 She was deemed appropriate from the cardiological standpoint of view to be discharged, she was complaining of some ear discomfort over the right this was evaluated with negative findings for signs of infection the patient did not have postnasal drip no tonsillar enlargement no erythema no pus patient did not have pain when pinna or tragus was manipulated and she did have evidence of earwax buildup on the left. The patient did feel like she was unsteady on her feet and I have explained that the year can affect balance and to have close follow-up with her primary care physician after instilling Debrox in order to treat the excess wax buildup on her left ear. Signs and symptoms of concern and when to seek medical attention were discussed with the patient and the at bedside in detail and extensively. All of their concerns were addressed to the best of my abilities. Patient was not happy with my responses and my findings since she wanted resolution of her ear discomfort I tried to provide as much reassurance as possible Physical exam Lungs clear to auscultation Cardiovascular S1-S2 regular rhythm no murmurs gallops or rubs Neurological alert awake awake oriented in person time place and situation cranial nerves II to XII intact no motor or sensory deficits appreciated Discharge Information Condition at Discharge: Improved Follow Up: Weeks Disposition/Orders: D/C to Home Scheduled Calcium Citrate (Calcitrate) 200 Mg Tablet, 1,000 MG PO DAILY, (Reported) Entered as Reported by: MICAH BRYSON on 07/29/131934 Last Action: Converted on 04/15/201157 by FRANK BROWER RN Cholecalciferol (Vitamin D3) (Vitamin D) 1,000 Unit Capsule, 1 CAP PO DAILY, #30 Ref 3 (Reported) Entered as Reported by: JUNE DOLAN on 08/13/15 1257 Last Action: Converted on 04/15/201157 by FRANK BROWER RN D-Mannose (Mannxtra) 300 Gm Powder, 300 GM PO DAILY for unk, (Reported) Entered as Reported by: YUVAL ARGUELLO on 12/19/19 1344 Last Action: Converted on 04/15/201157 by FRANK BROWER RN Glucosam/Msm/Vit C/Tuan/Hrb#21 (Glucosamine-Msm Complex Tab) 1 Each Tablet, 1 EACH PO BID, (Reported) Entered as Reported by: JUNE DOLAN on 08/13/15 1256 Last Action: Converted on 04/15/201157 by FRANK BROWER RN Lactobacillus Acidophilus (Probiotic) 1 Each Capsule, 1 EACH PO DAILY for supp, (Reported) Entered as Reported by: YUVAL ARGUELLO on 12/19/19 1344 Last Action: Converted on 04/15/201157 by FRANK BROWER RN Multivitamin (Multi Vitamin Daily) 1 Each Tablet, 1 EACH PO DAILY, (Reported) Entered as Reported by: JUNE DOLAN on 08/13/15 1258 Last Action: Converted on 04/15/201157 by FRANK BROWER RN Tyler-3 Fatty Acids (Fish Oil) 500 Mg Capsule.dr, 1,000 MG PO DAILY, (Reported) Entered as Reported by: JUNE DOLAN on 08/13/15 1256 Last Action: Converted on 04/15/201157 by FRANK BROWER RN Pantoprazole Sodium (Pantoprazole Sodium ) 40 Mg Tablet.dr, 20 MG PO HS for G ERD, (Reported) Entered as Reported by: JUNE DOLAN on 08/13/15 1254 Last Action: Continued on 04/15/201157 by FRANK BROWER RN Pramipexole Di-Hcl (Mirapex) 0.25 Mg Tablet, 0.125 MG PO DAILY for restless legs, (Reported) Entered as Reported by: YUVAL ARGUELLO on 12/19/19 1344 Last Action: Continued on 04/15/201157 by FRANK BROWER RN Simvastatin (Simvastatin) 5 Mg Tablet, 40 MG PO HS, (Reported) Entered as Reported by: MICAH BRYSON on 07/29/13 193 Last Action: Continued on 04/15/201157 by FRANK BROWER RN Justicifation of Admission Dx: Justifications for Admission: Justification of Admission Dx: Yes Angina: New-Onset BROWN CAMP MD Apr 16, 2020 14:49
--- NOTE | 2020-04-16 15:00 | NUR ---
Discharge Note: [facility] Discharge instructions and discharge home medications reviewed with Patient and a copy given. All questions have been answered and understanding verbalized. Information on follow up appointments and outpatient stress test provided to patient. The following instructions and handouts were given: stress test Discontinued lines and drains: Peripheral IV intact. Patient discharged to Home or Self Care with Self via Wheelchair
== END 2020-04-16 15:20 | disposition home or self-care (01) ==
LOC: ER 07:37 → 2 NORTH 08:51
PROVIDERS: ADMIT Internal Medicine; ATTEND Internal Medicine
DX: R07.89 Other chest pain (principal); K44.9 Diaphragmatic hernia without obstruction or gangrene; E78.00 Pure hypercholesterolemia, unspecified; I10 Essential (primary) hypertension; M19.012 Primary osteoarthritis, left shoulder; M19.011 Primary osteoarthritis, right shoulder; K21.9 Gastro-esophageal reflux disease without esophagitis; E78.5 Hyperlipidemia, unspecified; Z90.710 Acquired absence of both cervix and uterus; Z90.49 Acquired absence of other specified parts of digestive tract
CPT/HCPCS: 36415; 71045; 80053; 80061; 84443; 84484; 85025; 85610; 93005; 93306; 99285; G0378; G0379

== ENCOUNTER → 2020-09-04 | Outpatient (CLI) | payer BC ==
[~2020-09-04] MED LIST changes: +GABA300C18 PO; +IBUP-1815 PO; -IBUP100O25 PO; +IOHEXOL 180 MG/ML 10 ML VIAL. ONE; +PREG50CA91 PO; +methylPREDNISolone ACETATE 40 MG/ML VIAL. ONE; +methylPREDNISolone ACETATE 80 MG/ML VIAL. ONE
--- NOTE | 2020-09-04 09:18 | PDOC ---
Progress Note - Pain Clinic Date of Service: DOS: DATE: 09/04/20 TIME: 09:15 Diagnosis: Dx: Lumbar radiculopathy with lumbar degenerative disc disease History or Present Illness: HPI: 79-year-old female returns in follow-up status post lumbar epidural steroid injection x1 last seen January 02, 2020 patient is doing very well and we had held any further injections at that time after her first injection which was December 19, 2019. Patient reports now the pain is returning over the past 2 to 3 weeks in the low back and the right lower extremity for the first 6 to 7 months that was doing much better with distance walking doing household activities working activities around the home traveling with greater ease and comfort patient reports now the pain is increasing the low back right lower extremity posterior gluteus rating the posterior thigh and calf to the foot and the toes on the right side as well with some numbness and tingling patient what is burning and aching radiating the low back and the right lower extremity. Patient reports it wakes her from sleep occasionally but generally does not keep her from sleep most nights. Patient rates her pain is a 10 on scale 10 is worse over the past week 8 on average 5 its least and is a 5 today. Patient reports no new motor or sensory deficits no new bowel or bladder incontinence or points. Physical Exam: VS: Blood pressure is 138/83 pulse 73 respirations 16 temperature 98.1 F height is 4 feet 11 inches weight is 159 pounds PE: PHYSICAL EXAMINATION: GENERAL: The patient is awake, alert, oriented, appropriate, very pleasant demeanor, patient accompanied by her spouse. HEENT: Shows normocephalic, atraumatic. Extraocular movements are intact and symmetrical. Oral cavity: Mucous membranes moist and pink. Dentition is intact. NECK: Shows anterior throat supple without palpable lymphadenopathy noted. Swallow reflex symmetrical. CHEST: Shows normal on inspection. Breath sounds are clear bilaterally, no rales rhonchi or wheezes auscultated. HEART: Shows S1, S2 clear. No murmurs auscultated. ABDOMEN: Soft, nontender, nondistended, obese. No palpable organomegaly is noted. No rebound or guarding demonstrated. BACK: Shows spine grossly in the midline. Normal-appearing cervical lordotic curvature. There is slightly increased thoracic kyphosis, some minor flattening of the lumbar lordotic curvature. Lumbar paraspinous muscles show symmetrical on inspection, on palpation shows some moderate tenderness diffusely throughout the upper, middle and lower distribution of the paraspinous muscles bilaterally and also into the lower thoracic paraspinous musculature, firm and tender, but without specific trigger points, without radiation of pain. The patient has good rotational motion of the lumbar spine, both laterally as well as extension and flexion without significant difficulty. No tenderness over the spinous processes, sacrum or sacroiliac regions. EXTREMITIES: Lower extremities show deep tendon reflexes 1+ in the patellar and tendo calcaneus tendons. Motor exam is 4 on a scale of 5 with right dorsiflexion, extension, quadriceps and hamstring flexion and 5/5 on the left. Peripheral pulses are 1+ posterior tibial. No peripheral edema is noted bilaterally. Lower extremities are warm and dry to touch, equal in color and appearance. SKIN: Shows warm and dry, good turgor. No edema. No sores, rashes or bruising throughout. Procedure: Procedure: Options discussed with the patient. Patient chart was reviewed as her current medication regimen updated review of systems updated today as well. We will proceed with a lumbar epidural steroid injection as the first in the series with fluoroscopic guidance. Risks were discussed including but not limited to: Bleeding, infection, possibility of epidural hematoma and subsequent neurological compromise, dural puncture, headaches, spinal cord and/or nerve damage, side effects of steroid medication, and poor results regarding pain control. Patient understands wished to proceed. Patient will return to clinic in approximate 2 weeks for follow-up, was counseled as return appointment activity level, and side effects to be aware of. Medication Injected: Med Injected: Procedure is lumbar epidural steroid injection under local anesthetic using sterile prep and drape at the L5-S1 level using C-arm fluoroscopic guidance in both AP and lateral views medications injected is 120 mg Depo-Medrol + 10 mL preservative-free normal saline and 2 mL contrast- condition at discharge is stable patient tolerated procedure well had no complications. Condition at Discharge: Condition at Discharge: Condition at discharge stable, patient tolerated procedure well and had no complications. JUAQUIN NEUMANN MD Sep 04, 2020 09:18
== END | disposition home or self-care (01) ==
LOC: PNCL 08:27
PROVIDERS: ATTEND Anesthesiology
DX: M51.16 Intervertebral disc disorders with radiculopathy, lumbar region (principal); K21.9 Gastro-esophageal reflux disease without esophagitis; E66.9 Obesity, unspecified; M19.90 Unspecified osteoarthritis, unspecified site; I10 Essential (primary) hypertension; E78.00 Pure hypercholesterolemia, unspecified; Z87.440 Personal history of urinary (tract) infections; Z90.49 Acquired absence of other specified parts of digestive tract; Z98.890 Other specified postprocedural states; Z79.899 Other long term (current) drug therapy; Z87.891 Personal history of nicotine dependence; Z88.0 Allergy status to penicillin; Z88.2 Allergy status to sulfonamides
CPT/HCPCS: 62323; J1030; J1040; Q9965

== ENCOUNTER → 2020-09-18 | Outpatient (CLI) | payer BC ==
[~2020-09-18] MED LIST changes: -IBUP-1815 PO; +IBUP100O25 PO; -IOHEXOL 180 MG/ML 10 ML VIAL. ONE; -PREG50CA91 PO; -methylPREDNISolone ACETATE 40 MG/ML VIAL. ONE; -methylPREDNISolone ACETATE 80 MG/ML VIAL. ONE
--- NOTE | 2020-09-18 08:59 | PDOC ---
Progress Note - Pain Clinic Date of Service: DOS: DATE: 09/18/20 TIME: 08:56 Diagnosis: Dx: Lumbar radiculopathy with lumbar degenerative disc disease History or Present Illness: HPI: 79-year-old female returns to follow-up status post lumbar epidurals injection x1. Patient reports doing much better about 60 to 75% improvement in her low back and right lower extremity. Patient reports she did increase her activity to greater ease and comfort walking greater distances doing household activities working in her garden when the weather permits and sleeping much better. Patient reports she has not been awakened from sleep with this patient reports pain is in the low back and the right lower extremity posterior gluteus posterior thigh posterior calf to the ankle but only intermittent and very much less intense at this time. Patient reports her pain is a 5 on a scale 10 is absolute worst last week 3 on average 3 its least is a 3 today patient reports pain is aching and dull cramping at times and occasionally has some pain in the posterior left leg only very rarely. Patient reports no new motor or sensory deficits no new bowel or bladder incontinence or other complaints. Patient currently has a UTI and is taking antibiotics for this. Physical Exam: VS: Blood pressure is 137/79 pulse 83 respirations 20 temperature is 98.6 F height is 4 feet 11 inches weight is 160 pounds PE: PHYSICAL EXAMINATION: GENERAL: The patient is awake, alert, oriented, appropriate, very pleasant de meanor, patient accompanied by her . HEENT: Shows normocephalic, atraumatic. Extraocular movements are intact and symmetrical. Oral cavity: Mucous membranes moist and pink. NECK: Shows anterior throat supple without palpable lymphadenopathy noted. Swallow reflex symmetrical. CHEST: Shows normal on inspection. Breath sounds are clear bilaterally, no rales or rhonchi auscultated. HEART: Shows S1, S2 clear. No murmurs auscultated. ABDOMEN: Soft, nontender, nondistended, obese. No palpable organomegaly is noted. No rebound or guarding demonstrated. BACK: Shows spine grossly in the midline. Normal-appearing cervical lordotic curvature. There is slightly increased thoracic kyphosis, some minor flattening of the lumbar lordotic curvature. Lumbar paraspinous muscles show symmetrical on inspection, on palpation shows some moderate tenderness diffusely throughout the upper, middle and lower distribution of the paraspinous muscles, but without trigger points, without radiation of pain. The patient has good rotational motion of the lumbar spine, both laterally as well as extension and flexion without significant difficulty. EXTREMITIES: Lower extremities show deep tendon reflexes 1+ in the patellar and tendo calcaneus tendons. Motor exam is 4 on a scale of 5 with right dorsiflexion, extension, quadriceps and hamstring flexion and 5/5 on the left. Peripheral pulses are 1+ posterior tibial. No peripheral edema is noted bilaterally. Lower extremities are warm and dry to touch, equal in color and appearance. SKIN: Shows warm and dry, good turgor. No edema. No sores, rashes or bruising throughout. Procedure: Procedure: Options were discussed with the patient. Patient's old chart was reviewed as her current medication regimen updated current review of systems updated today as well. We will hold on further injections at this time as patient doing quite a bit better. She would like to increase her activity we discussed certain stretching strength exercise as well as daily walking activities for her to perform as well. Patient will follow up at this time on as-needed basis. Medication Injected: Med Injected: None Condition at Discharge: Condition at Discharge: Condition at discharge is stable. JUAQUIN NEUMANN MD Sep 18, 2020 08:59
== END | disposition home or self-care (01) ==
LOC: PNCL 08:21
PROVIDERS: ATTEND Anesthesiology
DX: M51.16 Intervertebral disc disorders with radiculopathy, lumbar region (principal); E78.00 Pure hypercholesterolemia, unspecified; I10 Essential (primary) hypertension; K21.9 Gastro-esophageal reflux disease without esophagitis; M19.90 Unspecified osteoarthritis, unspecified site; E66.9 Obesity, unspecified; Z87.891 Personal history of nicotine dependence; Z87.440 Personal history of urinary (tract) infections; Z90.49 Acquired absence of other specified parts of digestive tract; Z88.0 Allergy status to penicillin; Z88.2 Allergy status to sulfonamides
CPT/HCPCS: G0463

== ENCOUNTER → 2020-10-22 | Outpatient (CLI) | payer BC ==
[~2020-10-22] MED LIST changes: +IOHEXOL 180 MG/ML 10 ML VIAL. ONE; +methylPREDNISolone ACETATE 40 MG/ML VIAL. ONE; +methylPREDNISolone ACETATE 80 MG/ML VIAL. ONE
--- NOTE | 2020-10-22 09:19 | PDOC ---
Progress Note - Pain Clinic Date of Service: DOS: DATE: 10/22/20 TIME: 09:16 Diagnosis: Dx: Lumbar radiculopathy with lumbar degenerative disc disease Left inguinal pain History or Present Illness: HPI: 39-year-old female returns for follow-up status post lumbar epidural steroid dose. Patient with movement of her right leg is doing much better but her left leg still has a significant pain from the posterior gluteus posterior thigh posterior calf into the foot on the left side patient reports that sharp and aching cramping and stabbing in the back radiating the lower extremity rated as a 6 to an 8 on scale 10 is average and worst is an 8 4 on average today and is a 4 as well and its least is a 4. Patient reports no new motor or sensory deficits no new bowel or bladder incontinence initially to do much better with distance walking doing household activities working activities travel with greater ease and comfort as well. Patient reports he is sleeping well at night does not awaken her from sleep also has secondary complaint of left groin pain with pain radiating into the left ilioinguinal region and has had to trigger point injections at her primary care office which helped to a moderate extent but the pain is still significant and becoming more sharp and radiating in the left groin. Patient reports otherwise no new motor or sensory deficits no new bowel or bladder complaints. Physical Exam: VS: Pressure is 137/76 pulse 85 respirations 16 temperature 98.1 F height is 4 feet 11 inches weight 161 pounds PE: PHYSICAL EXAMINATION: GENERAL: The patient is awake, alert, oriented, appropriate, very pleasant demeanor HEENT: Shows normocephalic, atraumatic. Extraocular movements are intact and symmetrical. Oral cavity: Mucous membranes moist and pink. Dentition is intact. NECK: Shows anterior throat supple without palpable lymphadenopathy noted. Swa llow reflex symmetrical. CHEST: Shows normal on inspection. Breath sounds are clear bilaterally, no rales or rhonchi. HEART: Shows S1, S2 clear. No murmurs auscultated. ABDOMEN: Soft, nontender, nondistended, obese. No palpable organomegaly is noted. No rebound or guarding demonstrated. Patient has significant tenderness in the left ileal inguinal region with palpation and some slight increased hypertrophy in the lower abdominal musculature compared to the right but without radiation. BACK: Shows spine grossly in the midline. Normal-appearing cervical lordotic curvature. There is slightly increased thoracic kyphosis, some minor flattening of the lumbar lordotic curvature. Lumbar paraspinous muscles show symmetrical on inspection, on palpation shows some moderate tenderness diffusely throughout the upper, middle and lower distribution of the paraspinous muscles bilaterally without specific trigger points, without radiation of pain. The patient has good rotational motion of the lumbar spine, both laterally as well as extension and flexion without significant difficulty. No tenderness over the spinous processes, sacrum or sacroiliac regions. EXTREMITIES: Lower extremities show deep tendon reflexes 1+ in the patellar and tendo calcaneus tendons. Motor exam is 4 on a scale of 5 with right dorsiflexion, extension, quadriceps and hamstring flexion and 5/5 on the left. Peripheral pulses are 1 posterior tibial. No peripheral edema is noted bilaterally. Lower extremities are warm and dry to touch, equal in color and appearance. SKIN: Shows warm and dry, good turgor. No edema. No sores, rashes or bruising throughout. Procedure: Procedure: Options were discussed with patient. Patient chart reviews her current medication regimen updated current review of systems updated today as well. We will proceed with a third in the series lumbar epidural steroid traction today with fluoroscopic guidance. Risks were discussed including but not limited to: Bleeding, infection, possibility of epidural hematoma and subsequent neurological compromise, dural puncture, headaches, spinal cord and/or nerve damage, side effects of steroid medication, and poor results regarding pain control. Patient understands and wished to proceed. She will return to clinic in approximately 1 week for follow-up was counseled as return appointment activity level and side effects to be aware of. Medication Injected: Med Injected: Procedure is lumbar epidural steroid injection under local anesthetic using sterile prep and drape at the L5-S1 level using C-arm fluoroscopic guidance in both AP and lateral views medications injected is 120 mg Depo-Medrol + 10 mL preservative-free normal saline and 2 mL contrast- condition at discharge is stable patient tolerated procedure well had no complications. Condition at Discharge: Condition at Discharge: Condition at discharge stable, patient tolerated procedure well and had no complications. JUAQUIN NEUMANN MD Oct 22, 2020 09:19
--- NOTE | 2020-10-22 09:20 | PDOC4 ---
PROCEDURE Procedure Patient was consented for lumbar epidural steroid injection. Risks were dis cussed including but not limited to: Bleeding, infection, possibility of epidural hematoma and subsequent neurological compromise, dural puncture, headaches, spinal cord and/or nerve damage, side effects of steroid medication, and poor results regarding pain control. Patient understands and wished to proceed. Procedure is lumbar epidural steroid injection under local anesthetic using sterile prep and drape at the L5-S1 level using C-arm fluoroscopic guidance in both AP and lateral views medications injected is 120 mg Depo-Medrol + 10 mL preservative-free normal saline and 2 mL contrast- condition at discharge is stable patient tolerated procedure well had no complications. JUAQUIN NEUMANN MD Oct 22, 2020 09:20
== END | disposition home or self-care (01) ==
LOC: PNCL 08:25
PROVIDERS: ATTEND Anesthesiology
DX: M51.16 Intervertebral disc disorders with radiculopathy, lumbar region (principal); R10.32 Left lower quadrant pain; E78.00 Pure hypercholesterolemia, unspecified; I10 Essential (primary) hypertension; K21.9 Gastro-esophageal reflux disease without esophagitis; M19.90 Unspecified osteoarthritis, unspecified site; E66.9 Obesity, unspecified; Z87.440 Personal history of urinary (tract) infections; Z79.899 Other long term (current) drug therapy; Z98.890 Other specified postprocedural states; Z90.49 Acquired absence of other specified parts of digestive tract; Z88.0 Allergy status to penicillin; Z88.2 Allergy status to sulfonamides; Z87.891 Personal history of nicotine dependence
CPT/HCPCS: 62323; J1030; J1040; Q9965

== ENCOUNTER → 2020-12-02 | Outpatient (CLI) | payer BC ==
[~2020-12-02] MED LIST changes: -IOHEXOL 180 MG/ML 10 ML VIAL. ONE; +PREG50CA91 PO; -methylPREDNISolone ACETATE 40 MG/ML VIAL. ONE; -methylPREDNISolone ACETATE 80 MG/ML VIAL. ONE
--- NOTE | 2020-12-02 08:28 | PDOC ---
Progress Note - Pain Clinic Date of Service: DOS: DATE: 12/02/20 TIME: 08:25 Diagnosis: Dx: Lumbar radiculopathy with lumbar degenerative disc disease Left inguinal pain History or Present Illness: HPI: 80-year-old female returns for follow-up status post lumbar epidural steroid action x2. Patient reports about 70% overall with the second injection was not as helpful as the first she had about 90% improvement patient reports still pain in the low back and left lower extremity mostly the lateral aspect of the thigh and calf on the left side also in the posterior gluteus and posterior thigh on the left side only patient reports is worse in the morning worse with walking standing changing position describes as tight and shooting in the low back and leg burning and cramping in the back can be constant with standing and walking patient reports is a 10 on scale 10 is worse over the past week 8 on average 8 its least is an 8 today. Patient is taking Lyrica but reports he does not feel any different with it he is also been seeing a chiropractor daily for the past week or so, and reports that the pain is beginning to subside to some extent and feels that it is quite helpful with the chiropractic manipulations thus far. Patient reports no new motor or sensory deficits no new bowel or bladder incontinence reports still wakes her from sleep at least once or twice a night. Physical Exam: VS: Blood pressure is 143/97 pulse 96 respirations 16 temperature 90.4 F height is 4 feet 11 inches weight is 164 pounds PE: PHYSICAL EXAMINATION: GENERAL: The patient is awake, alert, oriented, appropriate, very pleasant demeanor, patient accompanied by her . HEENT: Shows normocephalic, atraumatic. Extraocular movements are intact and symmetrical. Oral cavity: Mucous membranes moist and pink. Dentition is intact. NECK: Shows anterior throat supple without palpable lymphadenopathy noted. Swallow reflex symmetrical. CHEST: Shows normal on inspection. Breath sounds are clear bilaterally. HEART: Shows S1, S2 clear. No murmurs auscultated. ABDOMEN: Soft, nontender, nondistended, obese. No palpable organomegaly is n oted. BACK: Shows spine grossly in the midline. Normal-appearing cervical lordotic curvature. There is slightly increased thoracic kyphosis, some minor flattening of the lumbar lordotic curvature. Lumbar paraspinous muscles show symmetrical on inspection, on palpation shows some moderate tenderness diffusely throughout the upper, middle and lower distribution of the paraspinous muscles without specific trigger points, without radiation of pain. The patient has good rotational motion of the lumbar spine, both laterally as well as extension and flexion without significant difficulty. EXTREMITIES: Lower extremities show deep tendon reflexes 1+ in the patellar and tendo calcaneus tendons. Motor exam is 4 on a scale of 5 with right dorsiflexion, extension, quadriceps and hamstring flexion and 5/5 on the left. Peripheral pulses are 1+ posterior tibial. No peripheral edema is noted bilaterally. Lower extremities are warm and dry to touch, equal in color and appearance. SKIN: Shows warm and dry, good turgor. No edema. No sores, rashes or bruising throughout. Procedure: Procedure: Options were discussed with the patient. Patient chart reviews her current medication regimen updated current review of systems updated today as well. We will hold on any further injections at this time as she is beginning to improve and the injections have had a very high co-pay for her [id number]. Patient reports that the chiropractic manipulation is helping we will recommend that she continue with this at this time as directed by her chiropractor. Also add Zanaflex for muscle relaxation to see if this may help decrease the pain and increase mobility as well. Also recommend increasing Lyrica to 50 mg twice daily instead of 20 5 in the morning and 50 at night. Patient was cautioned as to side effects with the each of the medication especially drowsiness with the Lyrica and the Zanaflex. Patient will follow up in approximate 4 weeks as scheduled and continue with chiropractic treatment as prescribed currently. Medication Injected: Med Injected: None Condition at Discharge: Condition at Discharge: Condition at discharge is stable. JUAQUIN NEUMANN MD Dec 02, 2020 08:28
== END | disposition home or self-care (01) ==
LOC: PNCL 07:35
PROVIDERS: ATTEND Anesthesiology
DX: M51.16 Intervertebral disc disorders with radiculopathy, lumbar region (principal); R10.32 Left lower quadrant pain; I10 Essential (primary) hypertension; E78.00 Pure hypercholesterolemia, unspecified; K21.9 Gastro-esophageal reflux disease without esophagitis; M19.90 Unspecified osteoarthritis, unspecified site; E66.9 Obesity, unspecified; Z87.440 Personal history of urinary (tract) infections; Z90.49 Acquired absence of other specified parts of digestive tract; Z98.890 Other specified postprocedural states; Z87.891 Personal history of nicotine dependence; Z88.0 Allergy status to penicillin; Z88.2 Allergy status to sulfonamides
CPT/HCPCS: G0463

== ENCOUNTER → 2021-02-12 | Outpatient (CLI) | payer BC ==
[~2021-02-12] MED LIST changes: +IBUP-1815 PO; -IBUP100O25 PO
--- NOTE | 2021-02-12 15:26 | KCIC ---
EXAM: AP, lateral and oblique views of the left knee DATE: 02/12/2021 11:44 AM INDICATION: Reason: Left knee pain, generalized knee pain. / Spl. Instructions: / History: COMPARISON: No Prior FINDINGS: No acute fracture or dislocation. No joint effusion. Joint spaces are preserved without significant degenerative/proliferative change. IMPRESSION: No acute fracture or dislocation. Electronically signed by: Jamel Crum MD (02/12/2021 3:24 PM) THI
== END ==
LOC: KCIC 11:41
PROVIDERS: ATTEND Family Medicine
DX: M25.562 Pain in left knee (principal)
CPT/HCPCS: 73562